=== PATIENT | female | born 1940 | race Caucasian/White ===

== ENCOUNTER 2025-04-24 09:39 | Outpatient (CLI) | payer MEDICARE, OTHER, SELFPAY ==
--- NOTE | 2025-04-24 10:44 | ECG_ITS ---
Test Date: 2025-04-24 11:06:34 Measurements Intervals [place] Rate: 65 P: 46 GA: 168 QRS: 6 QRSD: 89 T: 41 QT: 400 QTc: 417 Interpretive Statements SINUS RHYTHM WARNING: DATA QUALITY MAY AFFECT INTERPRETATION No previous ECG available for comparison Electronically Signed On 04-24-2025 14:38:26 CDT by Tyler Underwood M.D.
--- OUTSIDE RECORDS SUMMARY | 2025-04-24 10:52 | XMS_ITS | Clinical Summary ---
Author Organization [facility] Address [address] [place] [address] Care Team Providers Care Manager Practice Name Role Phone Jahaira Morgan RN Unavailable [phone] Lori Lancaster Primary Care Provider [phone] Source Comments [facility],non-owned Affiliates and Associated Physician Practices is amultiple site organization consisting of ambulatory clinics and hospital sitesin [place], [place], [place] and [place]. This disclosure is being madepursuant to the Care Everywhere program and may not contain all information available regarding this patient. Last updated 18.[facility] Allergies Active Allergy Reactions Criticality Noted Date Comments Codeine Rash Low 11/01/2014 Levofloxacin Rash Low 11/01/2014 Penicillins Rash Low 11/01/2014 Medications * Be aware that medications may not be up to date on this document. Alwaysverify current medications with the patient. amitriptyline (ELAVIL) 50 MG tablet Take 50 mg by mouth at bedtime. Active triamterene-hyd rochlorothiazid e (MAXZIDE) 75-50 MG tablet Take 1 Tab by mouth once daily. Active Potassium 99 MG tablet Take 99 mg by mouth once daily. Active metFORMIN (Glucophage) 500 MG tablet Take 1 (one) tablet by mouth 2 times daily with morning and evening meal Active rosuvastatin (Crestor) 5 MG tablet Take 1 (one) tablet by mouth once daily Active omeprazole (PriLOSEC) 40 MG capsule Take 1 (one) capsule by mouth daily before breakfast Active Probiotic Product (PROBIOTIC DAILY PO) Active levothyroxine (Synthroid) 112 MCG tablet Take 1 (one) tablet by mouth daily before breakfast Active Other 5 mg 2 times daily Biosil Active Multiple Vitamins-Minera ls (PRESERVISION AREDS PO) Active melatonin 10 MG capsule Take 1 (one) capsule by mouth at bedtime Active diphenhydrAMINE HCl (BENADRYL ALLERGY PO) Take 25 mg by mouth takes 2 at night Active Acetaminophen (TYLENOL PO) Take 500 mg by mouth takes 2 at night Active COLLAGEN PO Take by mouth once daily Active oxyBUTYnin CR 24hr (Ditropan-XL) 5 MG tablet Take 1 tablet by mouth once daily 30 tablet 6 3 Active Active Problems Problem Noted Date Diagnosed Date 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7 C (98 F) 11/02/2014 11:46 AM CDT Respiratory Rate 18 11/02/2014 11:46 AM CDT Oxygen Saturation 99% 11/02/2014 11:46 AM CDT Inhaled Oxygen Concentration - - Weight 52.6 kg (116 lb) 06/03/2022 2:18 PM CDT Height 152.4 cm (5') 06/03/2022 2:18 PM CDT Body Mass Index 22.65 06/03/2022 2:18 PM CDT Plan of Treatment Health Maintenance Due Date Last Done Comments BONE DENSITY TESTING 1940 MEDICARE AWV 12 MONTHS 1940 DTAP/TDAP/TD VACCINES (1 - Tdap) 1961 PNEUMOCOCCAL VACCINE 50+ (1 of 1 - PCV) 1992 ZOSTER VACCINE (1 of 2) 1992 Respiratory Syncytial Virus (RSV) Vaccine Pt: or over 60 yrs (1 - 1-dose 75+ series) 2017 DEPRESSION SCREENING 08/03/2024 COVID-19 VACCINE (3 - 2024-2 6 season) 2025 09/24/2020, 08/22/2020 INFLUENZA VACCINE (#1) 2025 04/30/2020 HEPATITIS B VACCINE Aged Out No longe r eligible based on patient's age to complete this topic HIB VACCINE Aged Out No longer eligi ble based on patient's age to complete this topic HPV VACCINE Aged Out No longer eligi ble based on patient's age to complete this topic MENINGOCOCCAL (Group B) VACCINE SHARED DECISION-MAKING Aged Out No longer eligible based on patient's age to complete this topic MENINGOCOCCAL GROUPS A/C/Y/W VACCINE Aged Out No longer eligible b ased on patient's age to complete this topic Medical Devices Implanted Type Area State Assessed Properties Director Device Identifier Shelf Expiration Date Model / Serial / Lot Grft Tiss Rep Xenform 4 X 7cm Implanted:Qty: 1 on 11/01/2014 by Eric Landa MD at [facility] N/A: Bladder Remark Micro[employer] 04/03/2017 [id number] / / [id number] Description:anterior vaginal [place] [address] [facility] [employer] [place] MEDICARE [employer] [place] MEDIC[place] Advance Directives * Full Code (Latest Code Status on File) Date Activated Date Inactivated Comments 11/01/2014 12:59 PM 11/02/2014 8:29 PM * Full Code Date Activated Date Inactivated Comments 11/01/2014 7:01 AM 11/01/2014 12:59 PM Care Teams Manager Practice Relationship Specialty Start Date End Date Lori Lancaster PA [address] [place] [id number] PCP - General 02/19/22 Jahaira Morgan, RN Social Worker School 11/01/14
[2025-04-24 12:39] LABS: Hematocrit 41.2 % (37.0-47.0); Hemoglobin 12.8 g/dL (12.0-15.0); Immature Granulocyte Percent A 0.3 % (0-0.5); Lymphocytes Absolute Auto 1.82 K/mm3 (0.9-3.2); Mean Corpuscular HGB Conc 31.1 g/dl (32-36); Mean Corpuscular Hemoglobin 28.4 pg (26-34); Mean Corpuscular Volume 91.6 fl (80-100); Nucleated Red Blood Cells Absolute Auto 0.000 K/mm3 (0.0-0.012); Nucleated Red Blood Cells Perc 0.0 % (0.0-0.2); Platelet Count Result 298 k/mm3 (150-375); Red Blood Count 4.50 M/mm3 (4.2-5.4); White Blood Count 7.3 K/mm3 (4.5-10.0)
[2025-04-24 12:43] LABS: Add Urine Microscopic? YES; Appearance Urine Clear (Clear); Glucose Urine UA Negative (Negative); Leukocyte Esterase Ur Trace LEU/UL (Negative); Nitrate Urine Negative (Negative); Non Pathogenic Casts 0-2; Specific Grav Ur 1.014 (1.001-1.035)
[2025-04-24 12:55] LABS: Alanine Aminotransferase 17 U/L (6-35); Albumin Level 4.4 g/dL (3.5-5.1); Alkaline Phosphatase 108 U/L (38-126); Anion Gap 9 mmol/L (4-12); Aspartate Amino Transferase 26 U/L (14-36); Bilirubin,Total 0.3 mg/dL (0.2-1.3); Blood Urea Nitrogen 19 mg/dL (7-17); CRP < 0.5 mg/dL (<1.0); Calcium 9.2 mg/dL (8.4-10.2); Carbon Dioxide 31 mmol/L (22-30); Chloride 98 mmol/L (98-107); Estimated Glomerular Filt Rate > 60; Glucose 112 mg/dL (65-110); Hemoglobin A1C 6.4 % (<5.7); Potassium 3.7 mmol/L (3.4-5.0); Sodium 138 mmol/L (137-145); Total Protein 7.7 g/dL (6.3-8.2)
[2025-04-24 12:58] LABS: INR 1.1; Prothrombin Time 14.7 Seconds (11.1-14.7)
[2025-04-24 12:59] LABS: Partial Thromboplastin Time 28.9 Seconds (22.3-36.8)
[2025-04-24 13:51] LABS: MRSA (PCR) NOT DETECTED (NOT DETECTE)
== END 2025-04-24 09:40 | disposition home or self-care (01) ==
LOC: ANHSURGERY 09:50
PROVIDERS: Visit Provider Orthopaedic Surgery
DX: M25.562 Pain in left knee (principal); Z01.818 Encounter for other preprocedural examination
CPT/HCPCS: 80053; 80307; 81001; 83036; 85025; 85610; 85730; 86140; 86850; 86900; 86901; 87641; 93005

== ENCOUNTER 2025-05-05 13:46 | Observation (INO) | payer MEDICARE, OTHER, SELFPAY ==
[2025-04-24 10:16] VITALS: BP 180/66; PULSE 65; RESP 16; TEMP 36.7; O2SAT 100; BMI 23.4
[2025-04-24 10:35] VITALS: BP 160/51
--- NOTE | 2025-04-24 10:36 | PC.NURSE ---
Addendum entered by Roseann Jang RN 04/25/25 09:52: Pt instructed to be here at 1000 on 05/04 for surgery at 1200. Message relayed to patient via Jaciel in Dr. Mesa's office. Original Note: [facility] has started construction of its new state of the art ER which will open Spring 2026. With this, we anticipate parking may be a challenge for some our surgical patients and families. Parking spaces are limited but are available for all Surgical, obstetrics, and ER patients sharing this lot. If you arrive and find you are having a hard time finding a parking space, please note that we understand the challenges, please drive around the hospital and park near Hospital Entrance 1. When you enter this entrance, you can ask a volunteer to direct or take you back to the surgical waiting area to check in. We appreciate everyone?s understanding of these expected challenges while we build for your future. Report to the Outpatient Waiting Room, entrance under the green pavilion located off [address], at time __06:00am on date __05/04/25 . Planned Procedure Time: 07:30am .? Time changes happen often and if your time is changed the preop area will call you the afternoon before. - You and your visitor will be asked to self-screen and do not enter if you have any COVID symptoms. Please call surgeon if you need to reschedule. - A mask is optional within the hospital at this time. Patients may have clear liquids (water, carbonated beverages, clear teas, apple juice) until 3 hours prior to surgery with a maximum of 20 ounces. - No food from midnight until time of surgery and no smoking, or chewing tobacco (or any form of nicotine). No chewing gum, candy or mints. (0430am) Take only the following medications with a SIP of water on the morning of surgery: Levothyroxine DO NOT STOP ANY OF YOUR OTHER PRESCRIPTION MEDICATIONS PRIOR TO SURGERY EXCEPT THE FOLLOWING Hold all vitamins and supplements for 3 days per anesthesiologist.Date of last dose 05/01/25. Medications to discontinue per physician ____Aspirin to be discussed w Dr Mesa tomorrow, usually HOLD one week Prior Date to take last dose__pending Please no make-up, nail irish, hairspray, perfume, deodorant, or body powder the day of surgery.? No jewelry (including any body piercings) or valuables the day of surgery, leave them at home.? Please take a shower or bath the night before, or the morning of, surgery with an antibacterial soap.?Scrub per Surgeon or DIAL SOAP Wear comfortable, loose fitting clothing.?Bring overnight bag, good tennis shoes, robe, walker, cell phone if you wish. - Jewelry must be removed prior to entering the operating room.? Rings and piercings that are not removed may be cut off. - The hospital will not accept responsibility for valuables.? - Please leave all valuables, including medications, at home the day of surgery. If you are going home after surgery, a licensed cab driver must drive you home.? - NO public transportation without another adult if you receive anesthesia. - We recommend that an adult stay with you for 24 hours following discharge. - We also recommend that you do not drive, make important decision, drink alcoholic beverages, or take any drugs that were not prescribed by your health care provider for at least 24 hours after your discharge time. Follow any additional instructions given to you from your surgeon. Telephone instructions given to ___Patient and asked if any additional questions and then verbalized understanding. Patient advised to call surgeon office or pre surgery nurse liaison [phone] if any additional questions.
[2025-05-04] VITALS (11 sets, daily range): BP systolic 136–161; BP diastolic 46–62; PULSE 70–78; RESP 14–20; TEMP 36.1–36.7; O2SAT 94–100
--- OUTSIDE RECORDS SUMMARY | 2025-05-04 00:40 | XMS_ITS | Encounter Summary ---
Author Organization [facility] Address [address] [place] [address] Care Team Providers Care Jig Grinder Name Role Phone Lori Lancaster Primary Care Provider [phone] Encounter Details Date Type Department Care Team (Late st Contact Info) Description 01/11/2025 [employer] Message [address] [id number] [employer], [facility] Provider Referral Social History Tobacco Use Types Packs/Day Years Used Date Smoking Tobacco: Former Cigarettes Passive Smoke Exposure: Past Smokeless Tobacco: Never Alcohol Use Standard Drinks/Week Comments No 0 (1 standard drink = 0.6 oz pur e alcohol) [facility] Utilities Answer Date Recorded In the past 12 months has [facility] [employer], gas, oil, or water [employer] threatened to shut off services in your home? No 11/07/2023 Humiliation, Afraid, Rape, and Kick questionnair e Answer Date Recorded Within the last year, have y ou been afraid of your partner or ex-partner? No 11/07/2023 Within the last year, have y ou been humiliated or emotionally abused in other ways by your partner or ex-partner? No Within the last year, have y ou been kicked, hit, slapped, or otherwise physically hurt by your partner or ex-partner? No 11/07/2023 Within the last year, have y ou been raped or forced to have any kind of sexual activity by your partner or ex-partner? No 11/07/2023 Social Connection and Isolat ion Panel [NHANES] Answer Date Recorded In a typical week, how many times do you talk on the phone with family, friends, or neighbors? More than three times a week 09/11/2020 Frequency of Social Gatherin gs with Friends and Family Not on file 09/11/2020 Attends Jehovah'S Witness Services Not on file 09/11 Active Member of Clubs or Organizations Not on f ile 09/11/2020 Attends Club or Organization Meetings Not on leyla e 09/11/2020 Marital Status Not on file 09/11/2020 AUDIT-C Answer Date Recorded Frequency of Alcohol Consumption Never 12/06/2018 Average Number of Drinks Not on file 019 Frequency of Binge Drinking Not on file 01/2019 Overall Financial Resource Strain (CARDIA) Answe r Date Recorded How hard is it for you to pa y for the very basics like food, housing, medical care, and heating? Not hard at all 11/07/2023 PHQ-2 Answer Date Recorded Patient Health Questionnaire-2 Score 0 10/20/2024 [facility] - Occupational Stress Questionnaire Answer Date Recorded Do you feel stress - tense, restless, nervous, or anxious, or unable to sleep at night because your mind is troubled all the time - these days? Not at all 09/11/2020 Exercise Vital Sign Answer Date Recorde d On average, how many days pe r week do you engage in moderate to strenuous exercise (like a brisk walk)? 3 days 09/11/2020 On average, how many minutes do you engage in exercise at this level? 30 min 09/11/2020 Hunger Vital Sign Answer Date Recorded Within the past 12 months, y ou worried that your food would run out before you got the money to buy more. Never true 11/07/19 24 Within the past 12 months, t he food you bought just didn't last and you didn't have money to get more. Never true 11/07/2023 PRAPARE - Transportation Answer Date Re corded In the past 12 months, has l ack of transportation kept you from medical appointments or from getting medications? No 01/2024 In the past 12 months, has l ack of transportation kept you from meetings, work, or from getting things needed for daily living? No 11/07/2023 Housing Stability Vital Sign Answer Jordan e Recorded In the last 12 months, was t here a time when you were not able to pay the mortgage or rent on time? No 11/07/2023 In the last 12 months, how many places have you lived? 1 11/07/2023 In the last 12 months, was t here a time when you did not have a steady place to sleep or slept in a assisted (including now)? No 11/07/2023 Housing Stability Vital Sign Answer Jordan e Recorded In the last 12 months, was t here a time when you were not able to pay the mortgage or rent on time? No 11/08/2023 In the past 12 months, how m any times have you moved where you were living? 1 11/08/2023 At any time in the past 12 m [facility], were you homeless or living in a assisted (including now)? No 11/08/2023 Comments No Sex and Gender Information Value Date Recorded Sex Assigned at Not on file Legal Sex Female 7:05 PM CDT Gender Identity Not on file Sexual Orientation Not on file documented as of this encounter Functional Status * Are you deaf or do you have serious difficulty hearing Answer Date of Assessment Author Status No 11/07/2023 11:27 AM JUANT Yamini Ken RN Active * Are you blind or do you have serious difficulty seeing, even when wearing glasses? Answer Date of Assessment Author Status No 11/07/2023 11:27 AM JUANT Yamini Ken RN Active * Do you have serious difficulty walking or climbing stairs? Answer Date of Assessment Author Status No 11/07/2023 11:27 AM JUANT Yamini Ken RN Active * Do you have difficulty dressing or bathing? Answer Date of Assessment Author Status No 11/07/2023 11:27 AM Yamini Roman RN Active * Because of a physical, mental, or emotional condition, do you have difficulty doing errands alone such as visiting a doctor's office or shopping? Answer Date of Assessment Author Status No 11/07/2023 11:27 AM Yamini Roman RN Active documented as of this encounter Mental Status * Because of a physical, mental, or emotional condition, do you have serious difficulty concentrating, remembering, or making decisions? Answer Entry Date Author Status No 11/07/2023 11:27 AM CDT Yamini Ken RN Active documented in this encounter Plan of Treatment Upcoming Encounters Date Type Department Care Team (Late st Contact Info) Description 01/10/2026 10:30 AM CDT Appointment [facility] [address] [place], [place] [id number] [facility] [address] [place] [address] documented as of this encounter Visit Diagnoses Not on filedocumented in this encounter Additional Health Concerns Assessment Noted Time PHQ-9 Depression Total Score: 0 02/19/20 21 10:26 AM CDT documented as of this encounter Care Teams Jig Grinder Relationship Specialty Start Date End Date Lori Lancaster PA [address] [facility] [place] [address] PCP - General PHYSICIAN SOLAR THERMAL TECHNICIAN 06/23/18 documented as of this encounter
--- OUTSIDE RECORDS SUMMARY | 2025-05-04 00:40 | XMS_ITS | Encounter Summary ---
Author Organization [facility] Address [facility] [place] [address] Care Team Providers Care Groutman Name Role Phone Lori Lancaster Primary Care Provider [phone] Encounter Details Date Type Department Care Team (Late st Contact Info) Description 06/28/2004 Abstract [facility] Conversion Md, Generic Conversion, Social History Tobacco Use Types Packs/Day Years Used Date Smoking Tobacco: Never Assessed Comments Unknown Sex and Gender Information Value Date Recorded Sex Assigned at Not on file Legal Sex Female 7:05 PM CDT Gender Identity Not on file Sexual Orientation Not on file documented as of this encounter Plan of Treatment Upcoming Encounters Date Type Department Care Team (Late st Contact Info) Description 01/10/2026 10:30 AM CDT Appointment [facility] [address] [place] [address] Omid Terry MD [place]. [address] [address] documented as of this encounter Visit Diagnoses Not on filedocumented in this encounter Additional Health Concerns Infection Onset Date Last Indicated Resolved Time COVID-19 Rule Out 09/08/2020 09/08/2020 09/09/2020 4:26 PM UTILITY LINEMAN COVID-19 Rule Out 07/09/2023 07/09/2023 07/09/2023 1:31 PM UTILITY LINEMAN documented as of this encounter Care Teams Groutman Relationship Specialty Start Date End Date Lori Lancaster PA [address] [place] [address] PCP - General PHYSICIAN IT COMPLIANCE MANAGER 06/23/18 documented as of this encounter
--- OUTSIDE RECORDS SUMMARY | 2025-05-04 00:40 | XMS_ITS | Encounter Summary ---
Author Organization [facility] Address [facility] [place] [address] Care Team Providers Care Apparel Designer Name Role Phone Lori Lancaster Primary Care Provider [phone] Encounter Details Date Type Department Care Team (Late st Contact Info) Description 02/23/2018 Abstract [facility] Conversion Lori Lancaster PA [address] [place] [address] Social History Tobacco Use Types Packs/Day Years Used Date Smoking Tobacco: Never Assessed Comments Unknown Sex and Gender Information Value Date Recorded Sex Assigned at Not on file Legal Sex Female 7:05 PM CDT Gender Identity Not on file Sexual Orientation Not on file documented as of this encounter Miscellaneous Notes * Letter - RICKI Moody - 02/23/2018 12:00 AM CDT 02-23-2018 Emma Jacky Corey [address] [place] [address] : 1940 Lab Order: TSH with Reflex T4 E03.9: Hypothyroidism, unspecified Fasting [] Non-Fasting [x] Normal [x] Stat [] C LIBRARIAN documented in this encounter Plan of Treatment Upcoming Encounters Date Type Department Care Team (Late st Contact Info) Description 01/10/2026 10:30 AM CDT Appointment [facility] [address] [place] [address] Omid Terry MD Three [facility]. [facility] [address] [place] [address] documented as of this encounter Visit Diagnoses Not on filedocumented in this encounter Additional Health Concerns Infection Onset Date Last Indicated Resolved Time COVID-19 Rule Out 09/08/2020 09/08/2020 09/09/2020 4:26 PM MUSIC LIBRARIAN COVID-19 Rule Out 07/09/2023 07/09/2023 07/09/2023 1:31 PM MUSIC LIBRARIAN documented as of this encounter Care Teams Apparel Designer Relationship Specialty Start Date End Date Lori Lancaster PA [address] [place] [address] PCP - General PHYSICIAN INSPECTOR HEATING AND REFRIGERATION 06/23/18 documented as of this encounter
--- OUTSIDE RECORDS SUMMARY | 2025-05-04 00:40 | XMS_ITS | Clinical Summary ---
Author Organization [facility] Address [address] [place] [address] Care Team Providers Care Waste Hand Name Role Phone Lori Lancaster Primary Care Provider [phone] Allergies Active Allergy Reactions Criticality Noted Date Comments Codeine Rash Low 11/01/2014 Hydrocodone Unknown 01/17/2019 Pt fell with hydrocodone Levofloxacin Rash Low 11/01/2014 Penicillins Hives,Rash Low 12/19/2003 Turmeric Itching 11/30/2023 Medications Potassium 99 MG tablet Take 1 tablet by mouth daily. Active Melatonin 10 MG Cap Take 10 mg by mouth nightly at bedtime. Active XIIDRA 5 % ophthalmic solution Place 1 drop into both eyes 2 (two) times daily. 5 Active famotidine (PEPCID) 20 MG tablet TAKE 1 TABLET BY MOUTH ONCE DAILY NEEDED AT BEDTIME; Duration: 30 days Active triamterene-hydroCH LOROthiazide (MAXZIDE) 75-50 MG tabletIndications:E ssential (primary) hypertension Take 0.5 tablets by mouth daily. 45 tablet 3 5 Active levothyroxine (SYNTHROID) 100 MCG tabletIndications:P rimary hypothyroidism Take 1 tablet (100 mcg total) by mouth every morning. FOR 14 DAYS 90 tablet 3 5 Active losartan (COZAAR) 25 MG tabletIndications:E ssential (primary) hypertension Take 1 tablet (25 mg total) by mouth daily. 90 tablet 3 5 Active omeprazole (PRILOSEC) 40 MG capsuleIndications: Gastroesophageal reflux disease without esophagitis Take 1 capsule (40 mg total) by mouth daily. 90 capsule 3 5 Active atorvastatin (LIPITOR) 40 MG tabletIndications:T ype 2 diabetes mellitus with hyperglycemia, without long-term current use of insulin ([facility] HHS/HCC),History of TIA (transient ischemic attack) Take 1 tablet (40 mg total) by mouth nightly at bedtime. 90 tablet 3 5 Active amitriptyline (ELAVIL) 50 MG tabletIndications:I rritable bowel syndrome, unspecified type Take 0.5 tablets (25 mg total) by mouth nightly at bedtime. 45 tablet 3 5 Active metFORMIN ER (GLUCOPHAGE-XR) 500 MG 24 hr tabletIndications:T ype 2 diabetes mellitus with hyperglycemia, without long-term current use of insulin ([facility]) Take 1 tablet (500 mg total) by mouth daily with breakfast. 90 tablet 3 5 Active Active Problems Problem Noted Date Diagnosed Date Visual disturbance 02/01/2025 Chronic constipation 01/29/2024 History of colon polyps 01/29/2024 Esophageal dysphagia 01/29/2024 Bilateral knee pain 01/21/2024 TIA (transient ischemic attack) 11/07/2023 Hiatal hernia 11/28/2020 Status post dilatation of esophageal stricture 0 10/04/2020 Dysphagia, unspecified type 09/06/2020 Acute renal insufficiency 01/13/2019 Age-related osteoporosis wit hout current pathological fracture 12/08/2018 Cystocele, midline 07/10/2015 Overview (06/23/2018): uses kun caputo hysterctomy Gross hematuria 07/10/2015 GERD (gastroesophageal reflux disease) 5 Overview (06/23/2018): needs repeat EGD in 04/2016 Hereditary and idiopathic neuropathy 07/12/2012 Primary hypothyroidism 07/12/2012 Encounters Date Type Department Care Team Description 04/20/[address] [facility] [address] [place] [address] Lori Lancaster PA Forms 03/30/[address] [facility] [address] [place] [address] Lori Lancaster PA Referral 03/15/2025 11:00 AM CDT Office Visit [facility] [address] [place] [address], [place] [address] Lori Lancaster PA Diabetes; Surgical Clearance (Lt knee, Dr [place], not scheduled yet) 03/15/2025 Travel 03/08/2025 11:20 AM CDT Office Visit [facility] - [address], [address] [place] [phone] Guillermina Beltrán MD New Patient (PCP sent here to just have everything checked out she stated ) 03/08/2025 Travel 02/15/2025 Scan [facility] SRVCS Scanned, [facility] 02/01/2025 11:15 AM CDT Office Visit [facility] [address] [place] [phone] Omid Terry MD Follow Up 02/01/2025 Orders Only [facility], [address] [place] [address] Omid Terry MD from Last 3 Months Immunizations Immunization Administration Dates Next Due Abrysvo Respiratory Syncytia l Virus (RSV) 0.5 mL, PF 06/30/2023 Fluzone High Dose (IIV, trivalent, 0.5mL) 2023 Fluzone High Dose - >Age 65 (Prefilled Syringe) 04/22/2023,05/28/2022,04/30/2020 Hepatitis A/Hepatitis B(Twinrix) 02/10/2023,04 Influenza Adult (Generic) 04/22/2023,05/28/2022, 04/30/2020 MODERNA COVID-19 (12+) MRNA, LNP-S, PF, 100 MCG/ 0.5 ML DOSE 09/24/2020,08/22/2020 MODERNA COVID-19 (12+), MRNA , LNP-S, PF, 50 MCG/0.5 ML (SPIKEVAX) 05/06/2023 MODERNA COVID-19 (FINANCIAL DEVELOPER ZHOU SCOTT), MRNA, LNP-S, PF, 50 MCG/ 0.25 ML DOSE 07/01/2021 Pneumococcal (Pneumovax 23) 02/13/2022 Pneumococcal (Prevnar 13) 04/30/2020,12/23/2019 Pneumococcal (Prevnar 20) 06/10/2023 Shingrix 06/27/2024,03/25/2024 Tdap (Generic) 11/10/2022,12/01/2007 Typhoid (Typhim ) 11/12/2022 Family History Medical History Relation Comments Cancer Daughter thyroid Cancer Father oral (under tong ue) Relation Status Comments Daughter Father Social History Tobacco Use Types Packs/Day Years Used Date Smoking Tobacco: Former Cigarettes Q uit: 09/03/2008 Passive Smoke Exposure: Past Smokeless Tobacco: Never Tobacco Cessation:Counseling Given: No Alcohol Use Standard Drinks/Week Comments Not Currently 0 (1 standard drink = 0.6 oz pur e alcohol) [facility] Utilities Answer Date Recorded In the past 12 months has e [employer], gas, oil, or water [employer] threatened to shut off services in your [...] and Family Not on file 09/11/2020 Attends [employer] Not on file 09/11 Active Member [...] Recorded Patient Health Questionnaire-2 Score 0 10/20/2024 [facility]ational Stress Questionnaire Answer Date Recorded [...] place to sleep or slept in a care home (including now)? No 11/07/2023 Housing Stability Vital Sign Answer Jordan e Recorded In the last 12 months, was t here a time when you were not able to pay the mortgage or rent on time? No 11/08/2023 In the past 12 months, how m any times have you moved where you were living? 1 11/08/2023 At any time in the past 12 m [facility], were you homeless or living in a care home (including now)? No 11/08/2023 Comments No Sex and Gender Information Value Date Recorded Sex Assigned at Not on file Legal Sex Female 7:05 PM CDT Gender Identity Not on file Sexual Orientation Not on file Last Filed Vital Signs Vital Sign Reading Time Taken Comments Blood Pressure 153/73 03/15/2025 11:00 AM CDT Pulse 80 03/15/2025 11:00 AM CDT Temperature 36.9 C (98.5 F) 03/15/2025 11:00 AM CDT Respiratory Rate 18 03/15/2025 11:0 0 AM CDT Oxygen Saturation 98% 03/15/2025 11: 00 AM CDT Inhaled Oxygen Concentration - - Weight 54.3 kg (119 lb 12.8 oz) 025 11:00 AM CDT Height 152.4 cm (5') 03/15/2025 11:00 AM CDT Body Mass Index 23.4 03/15/2025 11:00 AM CDT Plan of Treatment Upcoming Encounters Date Type Department Care Team (Late st Contact Info) Description 01/10/2026 10:30 AM CDT Appointment [facility] [address] [place] [address] Omid Terry MD [facility] [address] [place] [address] Health Maintenance Due Date Last Done Comments Diabetes: Retinopathy Eye Exam 1960 Annual Medicare Wellness Visit 2007 COVID-19 Vaccine ( season) 2025 05/06/2023, 07/01/2021, 09/24/2020, Additional history exists Influenza Adult (#1) 2025 06/27/2024, 04/22/2023, 04/22/2023, Additional history exists Hemoglobin A1C 07/05/2025 01/03/2025, 11/03, 03/21/2024, Additional history exists Lipid Panel 11/30/2025 11/30/2024, 05/0 04/2024, 11/08/2023, Additional history exists Kidney Health Evaluation 12/01/2025 12/01/2024 DTaP, Tdap and Td Vaccines (3 - Td or Tdap) 11/10/2032 11/10/2022, 12/01/2007 Pneumococcal Vaccine: 50+ Years Completed 06/10/2023, 02/13/2022, 04/30/2020, Additional history exists RSV Immunization or 60+ Years Completed 06/30/2023 Dexa Scan (General) Completed 10/13/2023 Zoster Vaccines Completed 06/27/2024, 03/25/2024 PHQ-2 (Physician Kenaitze) Completed 10/20/2024 Meningococcal B Vaccine Aged Out No l onger eligible based on patient's age to complete this topic Meningococcal Vaccine Aged Out No jennifer ana eligible based on patient's age to complete this topic RSV Immunizations Under 20 Months Aged Out No longer eligible based on patient's age to complete this topic Medical Devices Implanted Type Area Monorail Helper Device Identifier Shelf Expiration Date Model / Serial / Lot Tecnis Iol Implanted:Qty: 1 on 12/07/2023 by Gianna Clay MD at [facility] Left: Eye [employer] [id number] 11/10/2025 / [id number] / N/A Occular Lens Implanted:Qty: 1 on 02/01/2024 by Gianna Clay MD at [facility] Right: Eye [employer] [id number] 08/31/2025 [id number] / [id number] / Procedures Procedure Name Priority Date/Time Associated Diagnosis Comments HEMOGLOBIN, GLYCOSYLATED Routine 01/03/2025 10:53 AM CDT Type 2 diabetes mellitus with hyperglycemia, without long-term current use of insulin ([facility]) LIPID PANEL Routine 11/30/2024 1:56 PM CDT Type 2 diabetes mellitus with hyperglycemia, without long-term current use of insulin ([facility]) Essential (primary) hypertension BONE DENSITY/DEXA Routine 10/13/2023 1:5 0 PM CDT Menopause from Last 3 Months or Most Recently Relevant to Health Maintenance Results * (ABNORMAL) HEMOGLOBIN, GLYCOSYLATED (01/03/2025 10:53 AM CDT) HGB A1C 6.6(H) <5.7 % 01/03/2025 8:05 PM CDT [facility] Comment: ADA GUIDELINES 2010 5.7 TO 6.4% INCREASED RISK OF DIABETES > OR = 6.5% CONSISTENT WITH DIABETES ESTIMATED AVG GLUCOSE 143 mg/dL 01/03/2025 8:05 PM CDT [facility] 01/03/2025 10:5 3 AM CDT [facility] Final Result [facility] [address] [place] [address], [place] [phone] * (ABNORMAL) LIPID PANEL (11/30/2024 1:56 PM CDT) CHOLESTEROL 145 <200 MG/DL 11/30/2024 2:48 PM CDT [facility] TRIGLYCERIDES 188(H) <150 MG/DL 11/30/2024 2:48 PM CDT [facility] HDL 60 >40.0 MG/DL 11/30/2024 2:48 PM CDT [facility] LDL (CALCULATED) 47 <100 MG/DL 11/30/2024 2:48 PM CDT [facility] NON HDL CHOLESTEROL 85 <130 MG/DL 11/30/2024 2:48 PM CDT [facility] Comment: NOTE: WHEN THE TRIGLYCERIDES ARE >200 mg/dL, NON HDL C IS A SECONDARY TARGET OF THERAPY, WITH A GOAL 30 mg/dL HIGHER THAN THE IDENTIFIED LDL C GOAL. CHOL/HDL RATIO 2.4 0.0 - 4.5 11/30/2024 2:48 PM CDT [facility] VLDL CALCULATION 38 5 - 55 MG/DL 11/30/2024 2:48 PM CDT [facility] LIPID INTERPRETATION 11/30/2024 2:48 PM CDT [facility] Comment: NIH CONCENSUS REPORT RECOMMENDATIONS: ADULT CHILD LOW RISK: CHOLESTEROL <200 <170 TRIGLYCERIDE <150 --- HDL >=60 --- LDL <100 <110 BORDERLINE: CHOLESTEROL 200-239 170-199 TRIGLYCERIDE 150-199 --- HDL 40-59 --- LDL 100-159 110-129 HIGH RISK: CHOLESTEROL >=240 >=200 TRIGLYCERIDE >=200 --- HDL <40 --- LDL >=160 >=130 11/30/2024 1:56 PM CDT [facility] Final Result [facility] [address] [place] [address], [place] [phone] * BONE DENSITY/DEXA (10/13/2023 1:50 PM CDT) Anatomical Region Laterality Modality Bone Bone Density 10/13/2023 4:14 PM CDT Impressions 10/13/2023 4:16 PM CDT IMPRESSION: WHO Classification: Osteoporosis. RECOMMENDATIONS: All patients should ensure an adequate intake of dietary calcium and vitamin D. The NOF recommend adults under the age of 50 need 1000 mg of calcium and 400-800 IU of vitamin D daily. Effective therapy for the prevention and treatment of osteoporosis include bisphosphonates. FOLLOW-UP: People with diagnosed cases of osteoporosis or at high risk for fracture should have regular bone mineral density test. For patients eligible for Medicare, routine testing is allowed once every 2 years. Testing frequency can be increased to one year for patients who have rapidly progressing disease, those who are receiving or discontinuing medical therapy to restore bone mass, or have additional risk factors. Ordered By: LORI LANCASTER Interpreted By: Stanton Coy, 10/13/2023 4:14 PM Narrative 10/13/2023 4:16 PM CDT EXAMINATION: BONE DENSITY/DEXA INDICATIONS: Asymptomatic menopausal state COMPARISON: 09/18/2015 TECHNIQUE: DEXA bone mineral density evaluation was performed in the AP projection over the lumbar spine and both hips utilizing standard imaging techniques. FINDINGS: The BMD measured at the AP spine L1-L4 is 1.107 g/cm? with a T-score of 0.5 (previously 0.943 g/cm?) with a T-score of -0.9). The BMD measured at the left femoral neck is 0.508 g/cm? with a T-score of -3.1 (previously 0.518 g/cm?) with a T-score of -3.0). The BMD measured at the left hip is 0.592 g/cm? with a T-score of -2.9 (previously 0.592 g/cm?) with a T-score of -2.9). The BMD measured at the right femoral neck is 0.511 g/cm? with a T-score of - 3.0. The BMD measured at the right hip is 0.615 g/cm? with a T-score of -2.7. FRAX 10-year fracture risk: N/A: Multiple T scores are below -2.5 Procedure Note Stanton Coy MD - 10/13/2023 EXAMINATION: BONE DENSITY/DEXA INDICATIONS: Asymptomatic menopausal state COMPARISON: 09/18/2015 TECHNIQUE: DEXA bone mineral density evaluation was performed in the APprojection over the lumbar spine and both hips utilizing standard imagingtechniques. FINDINGS: The BMD measured at the AP spine L1-L4 is 1.107 g/cm? with a T-score of0.5 (previously 0.943 g/cm?) with a T-score of -0.9). The BMD measured at the left femoral neck is 0.508 g/cm? with a T-score of-3.1 (previously 0.518 g/cm?) with a T-score of -3.0). The BMD measured at the left hip is 0.592 g/cm? with a T-score of - 2.9(previously 0.592 g/cm?) with a T-score of -2.9). The BMD measured at the right femoral neck is 0.511 g/cm? with a T-scoreof -3.0. The BMD measured at the right hip is 0.615 g/cm? with a T-score of -2.7. FRAX 10-year fracture risk: N/A: Multiple T scores are below -2.5 IMPRESSION: WHO Classification: Osteoporosis. RECOMMENDATIONS: All patients should ensure an adequate intake of dietary calcium andvitamin D. The NOF recommend adults under the age of 50 need 1000 mg ofcalcium and 400-800 IU of vitamin D daily. Effective therapy for theprevention and treatment of osteoporosis include bisphosphonates. FOLLOW-UP: People with diagnosed cases of osteoporosis or at high risk for fractureshould have regular bone mineral density test. For patients eligible forMedicare, routine testing is allowed once every 2 years. Testing frequencycan be increased to one year for patients who have rapidly progressingdisease, those who are receiving or discontinuing medical therapy torestore bone mass, or have additional risk factors. Ordered By: LORI LANCASTER Interpreted By: Stanton Coy, 10/13/2023 4:14 PM [facility] Final Result from Last 3 Months or Most Recently Relevant to Health Maintenance Insurance MEDICARE [facility] Advance Directives * Full Code (Latest Code Status on File) Date Activated Date Inactivated Comments 11/07/2023 1:03 PM 11/09/2023 2:29 PM * Full Code Date Activated Date Inactivated Comments 01/13/2019 11:52 AM 01/15/2019 2:09 PM * Full Code Date Activated Date Inactivated Comments 01/13/2019 11:39 AM 01/13/2019 11:52 AM Care Teams Waste Hand Relationship Specialty Start Date End Date Lori Lancaster PA [address] [place] [address] PCP - General PHYSICIAN CHIP APPLYING MACHINE TENDER 06/23/18
--- OUTSIDE RECORDS SUMMARY | 2025-05-04 00:40 | XMS_ITS | Patient Health Record ---
Author Organization [facility] Address [address] [facility] [address] [place] [address] Care Team Providers Care Tire Beader Maker Name Role Phone Lori Cuevas Primary Care Provider Francine WHITING NP, LUISA Unavailable Reason For Referral No Information Medications Medication SIG (Take, Route, Frequency, Duration) Notes Start Date End Date Status Ranitidine HCl 300 MG as directed Orally Twice a day; Duration: 30 day(s) 01/25/2018 Active Famotidine 20 MG TAKE 1 TABLET BY MOUTH ONCE DAILY NEEDED AT BEDTIME; Duration: 30 days Need office visit for future refills Active Omeprazole 40 MG TAKE 1 CAPSULE BY MOUTH ONCE DAILY Active Plan Of Treatment No Information Insurance Providers Payer Name Payer Address Payer Phone Subscriber Number Group Number Insured Name Patient Relationship to Insured Coverage Start Date Coverage End Date Medicare-I L Medicare [address] [place], [place] [id number] Emma Corey Self - patient is the insured [facility] [address] [place] [id number] [phone] [id number] Emma Corey Self - patient is the insured Medicare-M O Medicare [address] [address] [place], [place] [id number] Emma Corey Self - patient is the insured
--- OUTSIDE RECORDS SUMMARY | 2025-05-04 00:40 | XMS_ITS | Clinical Summary ---
Author Organization [facility] Address [address] [place] [address] Care Team Providers Care Processing Technician Name Role Phone Jahaira Morgan RN Unavailable [phone] Lori Lancaster Primary Care Provider [phone] Source Comments [facility],non-owned Affiliates and Associated Physician Practices is amultiple site organization consisting of ambulatory clinics and hospital sitesin [place], [place], [place] and [place]. This disclosure is being madepursuant to the [...] this topic Medical Devices Implanted Type Area Manufacturing Supervisor 2Nd Shift Device Identifier Shelf Expiration Date Model / Serial / Lot Grft Tiss Rep Xenform 4 X 7cm Implanted:Qty: 1 on 11/01/2014 by Eric Landa MD [facility] N/A: Bladder [employer] 04/03/2017 [id number] / / [id number] Description:anterior vaginal [place] [address] MEDICARE [facility] [place] MED[place] Advance Directives * Full Code (Latest Code Status on File) Date Activated Date Inactivated Comments 11/01/2014 12:59 PM 11/02/2014 8:29 PM * Full Code Date Activated Date Inactivated Comments 11/01/2014 7:01 AM 11/01/2014 12:59 PM Care Teams Processing Technician Relationship Specialty Start Date End Date Lori Lancaster PA [address] [place] [id number] PCP - General 02/19/22 Jahaira Morgan, RN Full Stack Net Developer 11/01/14
--- OUTSIDE RECORDS SUMMARY | 2025-05-04 00:40 | XMS_ITS | Encounter Summary ---
Author Organization [facility] Address [facility] [place] [address] Care Team Providers Care Core Analyst Name Role Phone Lori Lancaster Primary Care Provider [phone] Encounter Details Date Type Department Care Team (Late st Contact Info) Description 09/05/2020 Prep for Procedure [facility] [address] [place] [address] Marilyn Boston MD [address] [place] [address] [address] Social History Tobacco Use Types Packs/Day Years Used Date Smoking Tobacco: Former Smokeless Tobacco: Never Alcohol Use Standard Drinks/Week Comments No 0 (1 standard drink = 0.6 oz pur e alcohol) AUDIT-C Answer Date Recorded Frequency of Alcohol Consumption Never 12/06/2018 Average Number of Drinks Not on file 019 Frequency of Binge Drinking Not on file 0501/2019 PHQ-2 Answer Date Recorded PHQ-2 Score 0 08/27/2020 Comments No Sex and Gender Information Value Date Recorded Sex Assigned at Not on file Legal Sex Female 7:05 PM CDT Gender Identity Not on file Sexual Orientation Not on file COVID-19 Exposure Response Date Recorded In the last month, have you been in contact with someone who was confirmed or suspected to have Coronavirus / COVID-19? No / Unsure 09/08/2020 6:44 AM CONSTRUCTION ANALYST documented as of this encounter Functional Status * RETIRED Are you deaf or do you have serious difficulty hearing Answer Date of Assessment Author Status No 01/13/2019 12:17 PM CDT Acti ve * RETIRED Are you blind or do you have serious difficulty seeing, even when wearing glasses? Answer Date of Assessment Author Status No 01/13/2019 12:17 PM CDT Acti ve * Do you have serious difficulty walking or climbing stairs? Answer Date of Assessment Author Status No 01/13/2019 12:17 PM CDT Blanca Grant R N Active * Do you have difficulty dressing or bathing? Answer Date of Assessment Author Status No 01/13/2019 12:17 PM CDT Blanca Grant R N Active * Because of a physical, mental, or emotional condition, do you have difficulty doing errands alone such as visiting a doctor's office or shopping? Answer Date of Assessment Author Status No 01/13/2019 12:17 PM CDT Blanca Grant R N Active documented as of this encounter Mental Status * Because of a physical, mental, or emotional condition, do you have serious difficulty concentrating, remembering, or making decisions? Answer Entry Date Author Status No 01/13/2019 12:17 PM CDT Blanca Grant R N Active documented in this encounter Plan of Treatment Upcoming Encounters Date Type Department Care Team (Late st Contact Info) Description 01/10/2026 10:30 AM CDT Appointment [facility] [address] [place] [address] Omid Terry MD [facility]. [id number] [place] [address] documented as of this encounter Results * PRE-SURGICAL/PRE-PROCEDURE CORONAVIRUS (COVID 19) (09/08/2020 6:45 AM CONSTRUCTION ANALYST) CORONAVIRUS SARS COV 2 PCR (RESP) NOT DETECTED NOT DETECTED 09/09/2020 4:26 PM CONSTRUCTION ANALYST [facility] Comment: A Not Detected (negative) test result for this test means that SARS- CoV-2 RNA was not present in the specimen above the limit of detection. A negative result does not rule out the possibility of COVID-19 and should not be used as the sole basis for treatment or patient management decisions. If COVID-19 is still suspected, based on exposure history together with other clinical findings, re-testing should be considered in consultation with public health authorities. Laboratory test results should always be considered in the context of clinical observations and epidemiological data in making a final diagnosis and patient management decisions. Please review the Fact Sheets and FDA authorized labeling available for health care providers and patients using the following websites: https://[email or web address].Allostatix/home/Covid-19/HCP/QuestIVD/fact- sheet.html https://www.Odeo.Allostatix/home/Covid-19/Patients/ QuestIVD/fact-sheet.html This test has been authorized by the FDA under an Emergency Use Authorization (EUA) for use by authorized laboratories. Due to the current public health emergency, [facility] is receiving a high volume of samples from a wide variety of swabs and media for COVID-19 testing. In order to serve patients during this public health crisis, samples from appropriate clinical sources are being tested. Negative test results derived from specimens received in non-commercially manufactured viral collection and transport media, or in media and sample collection kits not yet authorized by FDA for COVID-19 testing should be cautiously evaluated and the patient potentially subjected to extra precautions such as additional clinical monitoring, including collection of an additional specimen. Methodology: Nucleic Acid Amplification Test (NAAT) includes RT-PCR or TMA Additional information about COVID-19 can be found at the [facility] website: www.iAmplify.Allostatix/Covid19. Test performed at [facility] [address] [id number] Director: CARL SYLVESTER DO,MPH FIRST TEST NO 09/08/2020 6:45 AM [facility] EMPLOYED IN HEALTHCARE NO 09/08/2020 6:45 AM [facility] SYMPTOMATIC DEFINED BY CDC NO 09/08/2020 6:45 AM [facility] DATE OF SYMPTOM ONSET UNKNOWN 09/08/2020 11:02 AM CONSTRUCTION ANALYST [facility] HOSPITALIZATION STATUS NO 09/08/2020 6:45 AM CONSTRUCTION ANALYST [facility] PATIENT IN ICU NO 09/08/2020 6:45 AM CONSTRUCTION ANALYST [facility] RESIDENT OF [facility] NO 09/08/2020 6:45 AM CONSTRUCTION ANALYST [facility] NOT 09/08/2020 11:02 AM CONSTRUCTION ANALYST [facility] PATIENT'S RACE WHITE OR 09/08/2020 6:45 AM CONSTRUCTION ANALYST [facility] ETHNICITY NONHISPANIC 09/08/2020 6:45 AM CONSTRUCTION ANALYST [facility] SOURCE ([facility]) NASOPHARYNGEAL SWAB 09/08/2020 6:45 AM CONSTRUCTION ANALYST [facility] NASOPHARYNGEAL SWAB / Unknown 09/08/2020 6:45 AM CONSTRUCTION ANALYST us Marilyn Boston MD MICROBIOLOGY - GENERAL ORDER VINEET Final Result [facility] [address] [place] [address], [facility] [id number] [place] [id number], documented in this encounter Visit Diagnoses Diagnosis Pre-op testing- Primary Preoperative examination, unspecified documented in this encounter Additional Health Concerns Infection Onset Date Last Indicated Resolved Time COVID-19 Rule Out 09/08/2020 09/08/2020 09/09/2020 4:26 PM CONSTRUCTION ANALYST COVID-19 Rule Out 07/09/2023 07/09/2023 07/09/2023 1:31 PM CONSTRUCTION ANALYST documented as of this encounter Care Teams Core Analyst Relationship Specialty Start Date End Date Lori Lancaster PA [address] [place] [address] PCP - General PHYSICIAN BUSINESS ARCHITECT 06/23/18 documented as of this encounter
[2025-05-04] MEDS: LACTATED RINGERS 1,000 ML 30 ML IV CONT ×2 (11:15→15:40)
[2025-05-04] MEDS: ACETAMINOPHEN 500 MG TABLET 1000 MG PO (11:15)
[2025-05-04] MEDS: TRANEXAMIC ACID 1,000MG/ISO100 1,000 MG/100 ML BAG 200 MG IVPB (11:15)
[2025-05-04] MEDS: VANCOMYCIN 750 MG/NS 250 ML 750 MG/250 ML BAG 250 MG IVPB (11:15)
--- NOTE | 2025-05-04 11:55 | WPDHPUPDATE1 ---
History and Physical Update Update Date/Time: 05/04/25 11:55 History and Physical has been reviewed, including an updated exam of the patient. There are NO changes in the patient's condition. Risks, benefits, and alternatives have been discussed and questions answered. Patient agrees to proceed with procedure. Left Total Knee Replacement Risks include but are not limited to infection, nerve injury, blood vessel injury, dvt. She agrees to proceed.
--- NOTE | 2025-05-04 12:26 | WPDANESEPPF ---
Anes - Initial Pre Proc Eval Procedure: Operation Date: 05/04/25 12:00 Proposed Procedures p Left Total Knee Arthroplasty - Carlyle Mesa MD Date/Time: 05/04/25 12:26 Surgeon: Carlyle Mesa MD Pre Op Diagnosis: left knee pain Patient Data Age: 84 Gender: F Height: 1.52 m Weight: 53.3 kg Last Vital Signs Temp 97.8 F 05/04/25 11:15 Pulse 78 05/04/25 11:15 Resp 16 05/04/25 11:15 BP 151/57 H 05/04/25 11:15 Pulse Ox 100 05/04/25 11:15 O2 Del Method Room Air 05/04/25 11:15 Allergies Allergy/AdvReac Type Severity Reaction Status Date / Time codeine Allergy Intermediate rash Verified 04/24/25 10:04 penicillin G Allergy Intermediate unknown Verified 04/24/25 10:04 levofloxacin (From Levaquin) AdvReac Severe itching, Verified 04/24/25 10:04 rash tumeric AdvReac Intermediate itching Uncoded 04/24/25 10:04 Home Medications ?Medication ?Instructions ?Recorded ?Confirmed ?Type B6 1.7 mg-folic 400 mcg-B12 2.4 1 cap PO DAILY 04/24/25 04/24/25 History mok-ptbjrr-iytcewdkzxgs oral capsule (Neuriva Plus Brain Performance) amitriptyline 50 mg tablet 50 mg PO HS 04/24/25 04/24/25 History atorvastatin 40 mg tablet 40 mg PO QPM 04/24/25 04/24/25 History diphenhydramine HCl 25 mg tablet 25 mg PO HS 04/24/25 04/24/25 History (Sleep Tablet (diphenhydramine)) docusate sodium 100 mg capsule 100 mg PO DAILY 04/24/25 04/24/25 History (Colace) levothyroxine 100 mcg tablet 100 mcg PO .day 04/24/25 04/24/25 History lifitegrast 5 % eye drops in a 1 drp EACH EYE Q12H 04/24/25 04/24/25 History dropperette (Xiidra) losartan 25 mg tablet 25 mg PO DAILY 04/24/25 04/24/25 History melatonin 10 mg capsule 10 mg PO .PM PRN sleep 04/24/25 04/24/25 History metformin 500 mg tablet,extended 500 mg PO DAILY 04/24/25 04/24/25 History release 24 hr omeprazole 40 mg capsule,delayed 40 mg PO DAILY 04/24/25 04/24/25 History release potassium 99 mg tablet 99 mg PO DAILY 04/24/25 04/24/25 History triamterene 75 0.5 tablet PO DAILY 04/24/25 04/24/25 History mg-hydrochlorothiazide 50 mg tablet vit C 250 mg-vit E 90 mg-zinc 40 1 tablet PO ONCE 04/24/25 04/24/25 History mg-copper 1 fh-pfoxcq-mgpjbo capsule (Eye Health AREDS-2) Laboratory Tests 05/04/25 11:21 POC Capillary Glucose 106 H mg/dl (65-105) Patient hx anesthesia problems: none Family hx anesthesia problems: none Results Review: All pre-operative results and documents have been reviewed as part of the pre-operative evaluation. [facility] Social History Social History Smoking packs per day: 0.5 Smoking cigarettes per day: 10.0 Years smoked: 50 Smoking pack-years: 25.00 Smoking status: Former smoker Tobacco type: cigarettes Smoking end date: 08/03/08 Alcohol intake: never Substance use: never Living arrangements: alone Spiritual care concerns: No Anes - Eval Final PreProcedure Day of Procedure 05/04/25 12:26 Patient weight: normal Lungs: normal air movement Airway: Mallampati scale class II Neurological: alert and oriented Last oral intake: >/= 8 hours ASA classification: II Emergent: no Anesthetic plan: proceed Anesthesia type and monitoring: general ETT and standard monitoring Results Review: All pre-operative results and documents have been reviewed as part of the pre-operative evaluation. Hyperlipidemia, hypothyroidism, DM fsbs 106. EKG NSR. Informed Consent: The patient's anesthetic plan and its attendant risks and benefits were discussed with the patient/family/POA. Questions were solicited and answers provided to the satisfaction of the patient/family/POA.
--- NOTE | 2025-05-04 12:42 | WPDANESEPPF ---
Anes - Initial Pre Proc Eval Procedure: Operation Date: 05/04/25 12:00 Proposed Procedures p Left Total Knee Arthroplasty - Carlyle Mesa MD Date/Time: 05/04/25 12:42 Surgeon: Carlyle Mesa MD Pre Op Diagnosis: left knee pain Patient Data Age: 84 Gender: F Height: 1.52 m Weight: 53.3 kg Last Vital Signs Temp 97.8 F 05/04/25 11:15 Pulse 78 05/04/25 11:15 Resp 16 05/04/25 11:15 BP 151/57 H 05/04/25 11:15 Pulse Ox 100 05/04/25 11:15 O2 Del Method Room Air 05/04/25 11:15 Allergies Allergy/AdvReac Type Severity Reaction Status Date / Time codeine Allergy Intermediate rash Verified 05/04/25 12:29 penicillin G Allergy Intermediate unknown Verified 05/04/25 12:29 levofloxacin (From Levaquin) AdvReac Severe itching, Verified 05/04/25 12:29 rash tumeric AdvReac Intermediate itching Uncoded 04/24/25 10:04 Home Medications ?Medication ?Instructions ?Recorded ?Confirmed ?Type B6 1.7 mg-folic 400 mcg-B12 2.4 1 cap PO DAILY 04/24/25 05/04/25 History gcv-pzkrts-sqlgqssepdiw oral capsule (Neuriva Plus Brain Performance) amitriptyline 50 mg tablet 50 mg PO HS 04/24/25 04/24/25 History atorvastatin 40 mg tablet 40 mg PO QPM 04/24/25 04/24/25 History diphenhydramine HCl 25 mg tablet 25 mg PO HS 04/24/25 04/24/25 History (Sleep Tablet (diphenhydramine)) docusate sodium 100 mg capsule 100 mg PO DAILY 04/24/25 04/24/25 History (Colace) levothyroxine 100 mcg tablet 100 mcg PO .day 04/24/25 04/24/25 History lifitegrast 5 % eye drops in a 1 drp EACH EYE Q12H 04/24/25 04/24/25 History dropperette (Xiidra) losartan 25 mg tablet 25 mg PO DAILY 04/24/25 04/24/25 History melatonin 10 mg capsule 10 mg PO .PM PRN sleep 04/24/25 04/24/25 History metformin 500 mg tablet,extended 500 mg PO DAILY 04/24/25 04/24/25 History release 24 hr omeprazole 40 mg capsule,delayed 40 mg PO DAILY 04/24/25 04/24/25 History release potassium 99 mg tablet 99 mg PO DAILY 04/24/25 05/04/25 History triamterene 75 0.5 tablet PO DAILY 04/24/25 04/24/25 History mg-hydrochlorothiazide 50 mg tablet vit C 250 mg-vit E 90 mg-zinc 40 1 tablet PO ONCE 04/24/25 05/04/25 History mg-copper 1 mq-vaagxv-cfjyrr capsule (Eye Health AREDS-2) Laboratory Tests 05/04/25 11:21 POC Capillary Glucose 106 H mg/dl (65-105) Patient hx anesthesia problems: none Family hx anesthesia problems: none Results Review: All pre-operative results and documents have been reviewed as part of the pre-operative evaluation. [facility] Social History Social History Smoking packs per day: 0.5 Smoking cigarettes per day: 10.0 Years smoked: 50 Smoking pack-years: 25.00 Smoking status: Former smoker Tobacco type: cigarettes Smoking end date: 08/03/08 Alcohol intake: never Substance use: never Living arrangements: alone Spiritual care concerns: No Anes - Eval Final PreProcedure Day of Procedure 05/04/25 12:42 Patient weight: normal and thin Lungs: normal air movement Airway: Mallampati scale class II and special considerations (Partial plate. ) Neurological: alert and oriented Last oral intake: >/= 8 hours ASA classification: III Emergent: no Anesthetic plan: proceed Anesthesia type and monitoring: general ETT and standard monitoring Results Review: All pre-operative results and documents have been reviewed as part of the pre-operative evaluation. Hyperlipidemia, hypothyroidism, DM fsbs 106. EKG reviewed, NSR. Informed Consent: The patient's anesthetic plan and its attendant risks and benefits were discussed with the patient/family/POA. Questions were solicited and answers provided to the satisfaction of the patient/family/POA.
--- NOTE | 2025-05-04 12:46 | PM.IMHP ---
H&P: HPI History of Present Illness Date/Time: 05/04/25 12:46 Chief Complaint: Left Knee Pain with dx of ;Osteoarthritis Narrative: 87-year-old female with end-stage left knee osteoarthritis who has failed conservative management with regards to multiple cortisone injections as well as hyaluronic acid injections, as well as oral anti-inflammatory medications and activity modifications. She is therefore indicated for left total knee replacement. [facility] Social History Social History Smoking packs per day: 0.5 Smoking cigarettes per day: 10.0 Years smoked: 50 Smoking pack-years: 25.00 Smoking status: Former smoker Tobacco type: cigarettes Smoking end date: 08/03/08 Alcohol intake: never Substance use: never Living arrangements: alone Spiritual care concerns: No Meds Home Medications and Allergies Home Medications ?Medication ?Instructions ?Recorded ?Confirmed ?Type B6 1.7 mg-folic 400 mcg-B12 2.4 1 cap PO DAILY 04/24/25 05/04/25 History vys-yuhupp-igbnmdiwvitn oral capsule (Neuriva Plus Brain Performance) amitriptyline 50 mg tablet 50 mg PO HS 04/24/25 04/24/25 History atorvastatin 40 mg tablet 40 mg PO QPM 04/24/25 04/24/25 History diphenhydramine HCl 25 mg tablet 25 mg PO HS 04/24/25 04/24/25 History (Sleep Tablet (diphenhydramine)) docusate sodium 100 mg capsule 100 mg PO DAILY 04/24/25 04/24/25 History (Colace) levothyroxine 100 mcg tablet 100 mcg PO .day 04/24/25 04/24/25 History lifitegrast 5 % eye drops in a 1 drp EACH EYE Q12H 04/24/25 04/24/25 History dropperette (Xiidra) losartan 25 mg tablet 25 mg PO DAILY 04/24/25 04/24/25 History melatonin 10 mg capsule 10 mg PO .PM PRN sleep 04/24/25 04/24/25 History metformin 500 mg tablet,extended 500 mg PO DAILY 04/24/25 04/24/25 History release 24 hr omeprazole 40 mg capsule,delayed 40 mg PO DAILY 04/24/25 04/24/25 History release potassium 99 mg tablet 99 mg PO DAILY 04/24/25 05/04/25 History triamterene 75 0.5 tablet PO DAILY 04/24/25 04/24/25 History mg-hydrochlorothiazide 50 mg tablet vit C 250 mg-vit E 90 mg-zinc 40 1 tablet PO ONCE 04/24/25 05/04/25 History mg-copper 1 no-rgqect-rcuesc capsule (Eye Health AREDS-2) Allergies Allergy/AdvReac Type Severity Reaction Status Date / Time codeine Allergy Intermediate rash Verified 05/04/25 12:29 penicillin G Allergy Intermediate unknown Verified 05/04/25 12:29 levofloxacin (From Levaquin) AdvReac Severe itching, Verified 05/04/25 12:29 rash tumeric AdvReac Intermediate itching Uncoded 04/24/25 10:04 Vital Signs Vital Signs - 24 hr 05/04/25 11:15 Temperature 36.6 C Pulse Rate 78 Respiratory Rate 16 Blood Pressure 151/57 H Pulse Oximetry 100 Oxygen Delivery Room Air Exam Narrative: Left Knee Varus deformity with intact sensation and palpable DP Pulse. Tenderness medially as well as swelling noted. Const: General: cooperative and healthy appearing Assessment and Plan Assessment and plan (1) Arthritis of left knee: Code(s): M17.12 - Unilateral primary osteoarthritis, left knee Status: Acute Assessment and Plan: 87-year-old female with end-stage left knee osteoarthritis who has failed conservative management with regards to multiple cortisone injections as well as hyaluronic acid injections, as well as oral anti-inflammatory medications and activity modifications. She is therefore indicated for left total knee replacement. Risks benefits alternatives and complications discussed with patient. She agrees to proceed.
--- NOTE | 2025-05-04 13:00 | WPDANESPNB ---
Anes - Peripheral Nerve Block Date/Time: 05/04/25 13:00 I have discussed with the patient/family/POA the placement of a peripheral nerve block for post-operative pain management, including associated risks, benefits, complications, and side effects. Alternative methods of post-operative analgesia were detailed. Questions were solicited and answers provided to the satisfaction of the patient/family/POA. Time-Out: A pre-procedural Time-Out was completed immediately before starting the procedure and confirmed: Patient Identification, Site, Procedure, Patient Position and the Availability of Requisite Equipment. Clinical Indications: Acute post-operative pain management requested by the operative surgeon. Nerve Block Insertion Note Anes-nerve block: adductor canal left Patient position: supine Skin prep: chlorhexidine Needle: 22 gauge, stimulating, insulated echogenic needle. Needle length: 80 mm Technique: ultrasound Injectate: other (Bupiv 0.5% 10 mls. ) Observations: tolerated well Complications: none Procedure start time:: 1245 Procedure end time:: 1255
[2025-05-04] MEDS: ceFAZolin 2 GM in SODIUM CHLORIDE 0.9% IV 50 ML 100 ML IVPB ×2 (13:30→21:20)
[2025-05-04] MEDS: SODIUM CHLORIDE 0.9% IV 37.7 ML, MORPHINE SULFATE INJ (*CRX) 2 MG, ROPivacaine HCL 1% 2... INFILTRATE (13:58)
--- NOTE | 2025-05-04 15:46 | P.OP_ITS ---
Procedure Note - Detailed Date of Procedure 05/04/25 Pre-op Diagnosis left knee pain osteoathritis Post-op Diagnosis Same Procedure Performed Left Total Knee Replacement Surgeon Carlyle Mesa MD Anesthesia General Indications 84 yr old female with end stage Left Knee Osteoarthritis. Fail conservative management, including steroid and WALTON injection and activity modification as well as Oral NSAIDs. Xrays confirm diagnosis with complete joint space loss over the medial joint space as well as osteophyte formation and subchonrral sclerosis. Findings End Stage osteoarthritis Description of Procedure After obtaining consent for the left total knee replacement the interview with the holding area, the left knee was then marked in the holding area. I answered all the patient's questions in the holding area regarding the procedure and again went over the procedure with the patient and her family also went over the risks benefits alternatives and complications of left total knee replacement once again and they agreed to proceed. The patient was then brought to the operating room placed in the supine position which time she underwent general anesthesia left lower extremity was then prepped and draped in the standard sterile fashion. Tourniquet was not used for this procedure. A time-out was performed to verify correct patient correct side surgery and correct procedure as well as verifying that 2 g of Ancef were administered within 1 incision time. After the time-out was performed by the end proceeded to create an incision of the anterior aspect of patient's left knee and the dissection was carried down into identified at the patella and did a medial arthrotomy. Identified the distal femur remove all the osteophytes of the distal femur as well as the proximal tibia. He had significant subchondral sclerosis specifically over the medial tibial plateau as well as the medial femoral condyle. A moderate medial release. After this was done index expose the distal femur and placed int ramedullary evy into the femoral canal and then proceeded to place my cutting guide to do my distal femoral cut. A size 4? of valgus. I then removed 8 mm of the medial side approximately 4 mm off the lateral side. This was the measurement of the resection. I then placed my cutting guide over the distal femur to obtain 4? of external rotation aligned with Whitesides line. I then proceeded to place my 4 in 1 cutting block and by anterior-posterior cuts anterior-posterior chamfer cuts. I then turned my attention the tibia which time I used an external cutting guide in order to remove 4 mm off the medial side and 8 mm off the lateral side of my resection. I then proceeded to trial and noted that this was the adequate amount of bone that was resected with excellent full extension and the medial and lateral sides of the knee balanced very well in full extension as well as flexion the patella tracked perfectly. I then proceeded to prepare my proximal tibia cut that I placed my tibial implant in and I placed my 9 mm polyethylene spacer and I placed the femoral component in last. I then did the last bili check and noted that she had equal left equal tension mediolateral side the flexion and extension and the patella tracked perfectly. I then proceeded to irrigate copiously with pulsatile lavage and injected the subcutaneous as well as the deeper tissues with anesthetic local anesthetic injection. I then proceeded to close the medial arthrotomy using Ethibond suture and closed the skin using 2-0 Vicryl suture and glue and then I placed a sterile dressing on the left knee she was then transferred to recovery room stable condition. There were no complications Implants A Reading noncemented size 3 tibia and size 3 femur with a 9 polyethylene spacer Estimated Blood Loss 100 Drains No Packing No Pathology None sent Complications No immediate complications Condition Stable Disposition PACU
[2025-05-04] MEDS: fentaNYL CITRATE INJ (*CRX) 100 MCG/2 ML VIAL 25 MCG IV PUSH ×4 (15:57→16:29)
--- NOTE | 2025-05-04 17:24 | ADMGEN ---
This patient, Emma Corey, was admitted to [facility] Surg Room 325-01. Patient/family oriented to hospital policies and general routines including ID bracelet, bed and alarms, visiting hours, pain management, procedures, bathroom and other care routines, personal items, smoking policy, room service/diet, and visiting hours. Information on how to activate the Rapid Response Team has been discussed. Patient/Family are encouraged to report perceived risks to care and to ask questions if they do not understand what they are told or what they should do.
[2025-05-04] MEDS: SENNA/DOCUSATE SODIUM TABLET 2 TAB PO (17:39)
[2025-05-04] MEDS: ATORVASTATIN 40 MG TABLET PO (17:39)
[2025-05-04] MEDS: SODIUM CHLORIDE 0.9% IV 1,000 ML 125 ML IV CONT (17:39)
[2025-05-04] MEDS: HYDROmorphone HCL INJ (*CRX) 1 MG/ML SYR 0.5 MG IV PUSH (18:08)
[2025-05-04] MEDS: diphenhydrAMINE HCl CAP 25 MG CAPSULE PO (21:19)
[2025-05-04] MEDS: FAMOTIDINE 20 MG TABLET PO (21:19)
[2025-05-04] MEDS: HYDROcodone/acetaminophen (*CRX) 7.5-325 MG TABLET 1 TAB PO (21:19)
[2025-05-04] MEDS: ASPIRIN 81 MG ENTERIC TABLET PO (21:20)
[2025-05-05] VITALS (7 sets, daily range): BP systolic 128–174; BP diastolic 48–71; PULSE 71–101; RESP 14–20; TEMP 35.9–36.7; O2SAT 94–100
--- NOTE | ~2025-05-05 | XR_ITS ---
EXAMINATION: [id number] DATE: 05/04/2025 15:57 INDICATION: Postoperative evaluation following left total knee arthroplasty. TECHNIQUE: Anteroposterior and lateral views of the left knee were obtained. COMPARISON: None. FINDINGS: Left total knee arthroplasty without patellar resurfacing appears well seated and in near anatomic alignment. No fractures identified. Expected postoperative subcutaneous and intra-articular gas. IMPRESSION: 1. Left total knee arthroplasty, negative for postoperative purposes. Reviewed, dictated and finalized at location A.
[2025-05-05] MEDS: HYDROmorphone HCL INJ (*CRX) 1 MG/ML SYR IV PUSH ×2 (00:05→22:50)
[2025-05-05] MEDS: LEVOTHYROXINE SODIUM 100 MCG TABLET PO (05:24)
[2025-05-05] MEDS: HYDROcodone/acetaminophen (*CRX) 7.5-325 MG TABLET 1 TAB PO ×4 (05:24→20:20)
[2025-05-05] MEDS: ceFAZolin 2 GM in SODIUM CHLORIDE 0.9% IV 50 ML 100 ML IVPB ×2 (05:25→13:08)
[2025-05-05 06:07] LABS: Hematocrit 33.3 % (37.0-47.0); Hemoglobin 10.3 g/dL (12.0-15.0); Immature Granulocyte Percent A 0.4 % (0-0.5); Lymphocytes Absolute Auto 1.56 K/mm3 (0.9-3.2); Mean Corpuscular HGB Conc 30.9 g/dl (32-36); Mean Corpuscular Hemoglobin 28.6 pg (26-34); Mean Corpuscular Volume 92.5 fl (80-100); Nucleated Red Blood Cells Absolute Auto 0.000 K/mm3 (0.0-0.012); Nucleated Red Blood Cells Perc 0.0 % (0.0-0.2); Platelet Count Result 270 k/mm3 (150-375); Red Blood Count 3.60 M/mm3 (4.2-5.4); White Blood Count 14.6 K/mm3 (4.5-10.0)
[2025-05-05 07:31] LABS: Anion Gap 6 mmol/L (4-12); Blood Urea Nitrogen 15 mg/dL (7-17); Calcium 8.3 mg/dL (8.4-10.2); Carbon Dioxide 28 mmol/L (22-30); Chloride 101 mmol/L (98-107); Estimated CRCL calculation 40 ml/min; Estimated Glomerular Filt Rate > 60; Glucose 125 mg/dL (65-110); Potassium 4.4 mmol/L (3.4-5.0); Sodium 135 mmol/L (137-145)
[2025-05-05] MEDS: ASPIRIN 81 MG ENTERIC TABLET PO ×2 (08:40→20:20)
[2025-05-05] MEDS: HYDROmorphone HCL INJ (*CRX) 1 MG/ML SYR 0.5 MG IV PUSH ×4 (08:40→19:49)
[2025-05-05] MEDS: metFORMIN HCL XR 500 MG TAB.SR.24H PO (08:40)
[2025-05-05] MEDS: LOSARTAN POTASSIUM 25 MG TABLET PO (08:40)
[2025-05-05] MEDS: FAMOTIDINE 20 MG TABLET PO ×2 (08:40→20:21)
[2025-05-05] MEDS: OPTI-GEN TAB 1 TABLET PO (08:40)
[2025-05-05] MEDS: SENNA/DOCUSATE SODIUM TABLET 2 TAB PO ×2 (08:40→17:04)
--- NOTE | 2025-05-05 12:35 | PM.IMCN ---
Assessment and Plan Assessment and plan (1) Arthritis of left knee: Code(s): M17.12 - Unilateral primary osteoarthritis, left knee Status: Acute Plan Right knee osteoarthritis s/p replacement continue Pain control and DVT prophylaxis per surgical team monitor HTN BP wnl continue home Losartan Hypothyroidism continue home Levothyroxine HLD continue statin DVT prophylaxis per surgical team Full code HPI Date of Consult Consult date: 05/05/25 Requesting Physician: Carlyle Mesa MD Primary Care Provider: Lori Lancaster Consult Narrative Narrative: Emma Corey is a 84 year old female with PMH of Hypothyroidism, HTN and HLD and left knee osteoarthritis for whom we were consulted for medical management. Patient denies any chest pain, SOB, vomiting, abd pain or diarrhea, [facility] Surgery done yesterday and patinet rested comfortably at bedside vital sign stabel adn wound site clean and dry. Review of Systems Review of Systems: All other systems were reviewed and negative except as noted in the HPI above [facility] [place] Social History Social History Smoking packs per day: 0.5 Smoking cigarettes per day: 10.0 Years smoked: 50 Smoking pack-years: 25.00 Smoking status: Former smoker Alcohol intake: never Substance use: never Substance use type: does not use Lack of Transportation: No Lack of Food: Never True Current Housing: I Have Housing Concerned About Future Housing: No Difficulty Paying Gas/Electric Bills: No Difficulty Paying for Meds: No Currently Unemployed: No Education: High School Diploma/GED Difficulty w/ Childcare or Family Care: No Living arrangements: alone Spiritual care concerns: No Meds Home Medications and Allergies Home Medications ?Medication ?Instructions ?Recorded ?Confirmed ?Type B6 1.7 mg-folic 400 mcg-B12 2.4 1 cap PO DAILY 04/24/25 05/04/25 History [id number] oral capsule (Neuriva Plus Brain Performance) amitriptyline 50 mg tablet 50 mg PO HS 04/24/25 04/24/25 History atorvastatin 40 mg tablet 40 mg PO QPM 04/24/25 04/24/25 History diphenhydramine HCl 25 mg tablet 25 mg PO HS 04/24/25 04/24/25 History (Sleep Tablet (diphenhydramine)) docusate sodium 100 mg capsule 100 mg PO DAILY 04/24/25 04/24/25 History (Colace) levothyroxine 100 mcg tablet 100 mcg PO .day 04/24/25 04/24/25 History lifitegrast 5 % eye drops in a 1 drp EACH EYE Q12H 04/24/25 04/24/25 History dropperette (Xiidra) losartan 25 mg tablet 25 mg PO DAILY 04/24/25 04/24/25 History melatonin 10 mg capsule 10 mg PO .PM PRN sleep 04/24/25 04/24/25 History metformin 500 mg tablet,extended 500 mg PO DAILY 04/24/25 04/24/25 History release 24 hr omeprazole 40 mg capsule,delayed 40 mg PO DAILY 04/24/25 04/24/25 History release potassium 99 mg tablet 99 mg PO DAILY 04/24/25 05/04/25 History triamterene 75 0.5 tablet PO DAILY 04/24/25 04/24/25 History mg-hydrochlorothiazide 50 mg tablet vit C 250 mg-vit E 90 mg-zinc 40 1 tablet PO ONCE 04/24/25 05/04/25 History mg-copper 1 [id number] capsule ([facility] AREDS-2) Allergies Allergy/AdvReac Type Severity Reaction Status Date / Time codeine Allergy Intermediate rash Verified 05/04/25 17:25 penicillin G Allergy Intermediate unknown Verified 05/04/25 12:29 levofloxacin (From Levaquin) AdvReac Severe itching, Verified 05/04/25 17:25 rash Vital Signs Vital Signs - 24 hr 05/04/25 15:40 05/04/25 15:55 05/04/25 16:10 Temperature 98.1 F Pulse Rate 72 71 71 Respiratory Rate 14 14 14 Blood Pressure 136/49 L 139/52 L 145/51 H Pulse Oximetry 100 100 96 Oxygen Delivery Simple Face Mask Room Air Room Air Oxygen Flow Rate 6 05/04/25 16:25 05/04/25 16:40 05/04/25 17:10 Temperature 97.2 F L 96.9 F L Pulse Rate 72 72 71 Respiratory Rate 14 14 14 Blood Pressure 145/50 H 154/59 H 161/62 H Pulse Oximetry 94 95 100 Oxygen Delivery Room Air Room Air Oxygen Flow Rate 05/04/25 17:19 05/04/25 17:55 05/04/25 17:55 Temperature 97.1 F L 97.5 F L Pulse Rate 70 73 Respiratory Rate 16 14 Blood Pressure 158/54 H 154/51 H Pulse Oximetry 98 99 Oxygen Delivery Room Air Oxygen Flow Rate 05/04/25 18:55 05/04/25 21:19 05/05/25 00:43 Temperature 97.2 F L 97.3 F L 97.6 F Pulse Rate 73 78 71 Respiratory Rate 16 20 20 Blood Pressure 141/48 H 155/46 H 137/71 Pulse Oximetry 99 98 98 Oxygen Delivery Oxygen Flow Rate 05/05/25 05:19 05/05/25 08:00 05/05/25 08:35 Temperature 97.9 F Pulse Rate 71 Respiratory Rate 20 Blood Pressure 137/48 L Pulse Oximetry 100 Oxygen Delivery Room Air Room Air Oxygen Flow Rate 05/05/25 09:13 05/05/25 09:19 Temperature 98.1 F Pulse Rate 74 Respiratory Rate 18 Blood Pressure 128/52 L Pulse Oximetry 100 Oxygen Delivery Room Air Oxygen Flow Rate Exam Narrative: General: alert and comfortable Eyes: EOMI, PERRLA ENNT External ears normal, Neck is supple, no masses, Respiratory systems: Clear to auscultation Cardiovascular S1, S2, normal rhythm, no murmur, rub, or gallop; no thrill or palpable murmurs on palpation. Gastrointestinal: soft, non-tender, and non-distended abdomen with no masses; BS present Skin: no rash, lesions, ulcerations, subcutaneous nodules or induration Musculoskeletal: Right knee wound dressing clean and dry Neurologic: Alert and oriented x3, non focal Mental Status Exam: normal affect Results Labs 05/05/25 05:58 05/05/25 05:58 Labs: Short CBC 05/05/25 Range/Units 05:58 WBC 14.6 H (4.5-10.0) K/mm3 Hgb 10.3 L (12.0-15.0) g/dL Hct 33.3 L (37.0-47.0) % Plt Count 270 (150-375) k/mm3 BMP 05/05/25 05:58 Sodium 135 L Potassium 4.4 Chloride 101 Carbon Dioxide 28 BUN 15 Creatinine 0.67 L Glucose 125 H Calcium 8.3 L Hospitalist MIPS Advance Care Plan I have confirmed that the patient's Advanced Care Plan is present, code status is documented, or surrogate decision maker is listed in patient medical record.: Yes Medication Reconciliation I have utilized all available resources to obtain, update and review the patients current medications (includes all prescriptions, OTC, herbals, cannabis, and nutritional supplements).: Yes
--- NOTE | 2025-05-05 13:20 | PCPTNOTE ---
Attempted to see aptient for PT, however patient refused due to pain.
--- NOTE | 2025-05-05 14:01 | PM.PNORT ---
Progress Note: A&P Assessment and Plan (1) Arthritis of left knee: Code(s): M17.12 - Unilateral primary osteoarthritis, left knee Status: Acute Plan pod 1 doing well - cont physical therapy - possible discharge tomorrow Subjective Subjective Date/Time Seen: 05/05/25 14:01 Principal diagnosis: s/p Left TKA Interval history: Moderate Left Knee Pain Exam Narrative: Left knee bandaged and dry Objective Data Vital Signs Vital Signs: Vital Signs - 24 hr 05/04/25 15:40 05/04/25 15:55 05/04/25 16:10 Temperature 36.7 C Pulse Rate 72 71 71 Respiratory Rate 14 14 14 Blood Pressure 136/49 L 139/52 L 145/51 H Pulse Oximetry 100 100 96 Oxygen Delivery Simple Face Mask Room Air Room Air Oxygen Flow Rate 6 05/04/25 16:25 05/04/25 16:40 05/04/25 17:10 Temperature 36.2 C L 36.1 C L Pulse Rate 72 72 71 Respiratory Rate 14 14 14 Blood Pressure 145/50 H 154/59 H 161/62 H Pulse Oximetry 94 95 100 Oxygen Delivery Room Air Room Air Oxygen Flow Rate 05/04/25 17:19 05/04/25 17:55 05/04/25 17:55 Temperature 36.2 C L 36.4 C L Pulse Rate 70 73 Respiratory Rate 16 14 Blood Pressure 158/54 H 154/51 H Pulse Oximetry 98 99 Oxygen Delivery Room Air Oxygen Flow Rate 05/04/25 18:55 05/04/25 21:19 05/05/25 00:43 Temperature 36.2 C L 36.3 C L 36.4 C Pulse Rate 73 78 71 Respiratory Rate 16 20 20 Blood Pressure 141/48 H 155/46 H 137/71 Pulse Oximetry 99 98 98 Oxygen Delivery Oxygen Flow Rate 05/05/25 05:19 05/05/25 08:00 05/05/25 08:35 Temperature 36.6 C Pulse Rate 71 Respiratory Rate 20 Blood Pressure 137/48 L Pulse Oximetry 100 Oxygen Delivery Room Air Room Air Oxygen Flow Rate 05/05/25 09:13 05/05/25 09:19 Temperature 36.7 C Pulse Rate 74 Respiratory Rate 18 Blood Pressure 128/52 L Pulse Oximetry 100 Oxygen Delivery Room Air Oxygen Flow Rate Intake/Output Intake/Output: Intake & Output 05/02/25 05/03/25 05/04/25/03/25 23:59 23:59 23:59 23:59 Intake Total 350 450 Balance 350 450 Meds/Results Medications: Active Medications Generic Name Dose Route Start Last Admin Trade Name Freq PRN Reason Stop Dose Admin Hydrocodone Bitart/Acetaminophen 1 tab 05/04/25 15:34 05/05/25 10:24 Hydrocodone/Acetaminophen (*Crx) 7.5-325 Mg Tablet PO 1 tab Q4H PRN Administration Pain Rated 7-10 Amitriptyline HCl 50 mg 05/05/25 21:00 Amitriptyline Hcl 25 Mg Tablet PO HS MARKELL Aspirin 81 mg 05/04/25 21:00 05/05/25 08:40 Aspirin 81 Mg Enteric Tablet PO 81 mg Q12HR MARKELL Administration Atorvastatin Calcium 40 mg 05/04/25 18:00 05/04/25 17:39 Atorvastatin 40 Mg Tablet PO 40 mg QPM MARKELL Administration Diphenhydramine HCl 25 mg 05/04/25 15:34 Diphenhydramine Hcl Inj 50 Mg/Ml Vial IV PUSH Q6H PRN Itching Diphenhydramine HCl 25 mg 05/04/25 21:00 05/04/25 21:19 Diphenhydramine Hcl Cap 25 Mg Capsule PO 25 mg HS MARKELL Administration Famotidine 20 mg 05/04/25 21:00 05/05/25 08:40 Famotidine 20 Mg Tablet PO 20 mg Q12HR MARKELL Administration Hydromorphone HCl 1 mg 05/04/25 15:34 05/05/25 00:05 Hydromorphone Hcl Inj (*Crx) 1 Mg/Ml Syr IV PUSH 1 mg Q2H PRN Administration Breakthrough Pain Rated 7-10 or NPO Hydromorphone HCl 0.5 mg 05/04/25 15:34 05/05/25 13:07 Hydromorphone Hcl Inj (*Crx) 1 Mg/Ml Syr IV PUSH 0.5 mg Q2H PRN Administration Breakthrough Pain Rated 4-6 or NPO Ibuprofen 800 mg in 200 mls @ 400 mls/hr 05/04/25 15:34 Caldolor 800 Mg/200 Ml IVPB Q6H PRN IF NPO Ibuprofen 400 mg 05/04/25 15:34 Ibuprofen 400 Mg Tablet PO Q6H PRN Pain Rated 1-3 Ibuprofen 600 mg 05/04/25 15:34 Ibuprofen 600 Mg Tablet PO Q6H PRN Pain Rated 4-6 Levothyroxine Sodium 100 mcg 05/05/25 06:30 05/05/25 05:24 Levothyroxine Sodium 100 Mcg Tablet PO 100 mcg DAILY@0630 MARKELL Administration Losartan Potassium 25 mg 05/05/25 09:00 05/05/25 08:40 Losartan Potassium 25 Mg Tablet PO 25 mg DAILY MARKELL Administration Melatonin 10 mg 05/04/25 15:41 Melatonin 5 Mg Tablet PO HS PRN Sleep Metformin HCl 500 mg 05/05/25 09:00 05/05/25 08:40 Metformin Hcl Xr 500 Mg Tab.Sr.24h PO 500 mg DAILY MARKELL Administration Miscellaneous Information 1 each 05/04/25 00:01 Nonformulary Drug (Lifitegrast [Xiidra] 5 % Dropperette)Can Patient Use From Home? XX 06/03/25 00:00 CLARIFY REPLACED BY [facility] Multivitamins/Minerals 1 tablet 05/05/25 09:00 05/05/25 08:40 Opti-Gen Tab PO 1 tablet QAM MARKELL Administration Naloxone HCl 0.1 mg 05/04/25 15:34 Naloxone Hcl 0.4 Mg/Ml Vial IV PUSH Q2M PRN Opiate Reversal Non-Formulary Medication 1 drop 05/04/25 15:45 Lifitegrast [Xiidra] EACH EYE 06/03/25 15:44 Q12H REPLACED BY [facility] Non-Formulary Medication 1 each 05/04/25 16:12 Nonformulary Nutritional Supplement XX 05/05/25 16:11 PRN PRN PROTOCOL Ondansetron HCl 4 mg 05/04/25 15:34 Ondansetron Inj 4 Mg/2 Ml Vial IV PUSH Q4H PRN Nausea And Vomiting Polyethylene Glycol 17 gm 05/05/25 09:00 05/05/25 08:40 Polyethylene Glycol 3350 17 Gm Powd.Pack PO 17 gm QAM MARKELL Administration Senna/Docusate Sodium 2 tab 05/04/25 17:00 05/05/25 08:40 Senna/Docusate Sodium Tablet PO 2 tab BID MARKELL Administration Radiology Results: ITS Impressions Knee X-Ray 05/04/25 15:59 IMPRESSION: 1. Left total knee arthroplasty, negative for postoperative purposes. Labs Labs: Laboratory Results - last 24 hr 05/04/25 05/05/25 15:45 05:58 WBC 14.6 H RBC 3.60 L Hgb 10.3 L Hct 33.3 L MCV 92.5 MCH 28.6 MCHC 30.9 L RDW 14.0 Plt Count 270 MPV 10.8 H Immature Gran % (Auto) 0.4 Neut % (Auto) 78.0 H Lymph % (Auto) 10.7 L [place] % (Auto) 10.5 H Eos % (Auto) 0.1 Baso % (Auto) 0.3 Lymph # (Auto) 1.56 [place] # (Auto) 1.5 H Eos # (Auto) 0.0 Baso # (Auto) 0.0 Abs Immat Gran (auto) 0.06 H Absolute Neuts (auto) 11.4 H Absolute Nucleated RBC 0.000 Nucleated RBC % 0.0 Sodium 135 L Potassium 4.4 Chloride 101 Carbon Dioxide 28 Anion Gap 6 BUN 15 Creatinine 0.67 L Estim Creat Clear Calc 40 Estimated GFR > 60 Glucose 125 H POC Capillary Glucose 130 H Calcium 8.3 L
[2025-05-05] MEDS: ATORVASTATIN 40 MG TABLET PO (17:04)
[2025-05-05] MEDS: diphenhydrAMINE HCl CAP 25 MG CAPSULE PO (20:21)
[2025-05-05] MEDS: AMITRIPTYLINE HCL 25 MG TABLET 50 MG PO (20:21)
[2025-05-06] MEDS: HYDROcodone/acetaminophen (*CRX) 7.5-325 MG TABLET 1 TAB PO ×5 (02:07→20:14)
[2025-05-06] MEDS: HYDROmorphone HCL INJ (*CRX) 1 MG/ML SYR IV PUSH (04:00)
[2025-05-06 05:28] VITALS: BP 125/42; PULSE 55; RESP 14; TEMP 36.5; O2SAT 90
[2025-05-06] MEDS: LEVOTHYROXINE SODIUM 100 MCG TABLET PO (06:21)
[2025-05-06 06:22] LABS: Hematocrit 34.3 % (37.0-47.0); Hemoglobin 10.9 g/dL (12.0-15.0); Immature Granulocyte Percent A 0.5 % (0-0.5); Lymphocytes Absolute Auto 0.89 K/mm3 (0.9-3.2); Mean Corpuscular HGB Conc 31.8 g/dl (32-36); Mean Corpuscular Hemoglobin 29.1 pg (26-34); Mean Corpuscular Volume 91.5 fl (80-100); Nucleated Red Blood Cells Absolute Auto 0.000 K/mm3 (0.0-0.012); Nucleated Red Blood Cells Perc 0.0 % (0.0-0.2); Platelet Count Result 268 k/mm3 (150-375); Red Blood Count 3.75 M/mm3 (4.2-5.4); White Blood Count 17.5 K/mm3 (4.5-10.0)
[2025-05-06 06:42] LABS: Hemoglobin A1C 6.2 % (<5.7)
[2025-05-06 06:48] LABS: Alanine Aminotransferase 17 U/L (6-35); Albumin Level 3.6 g/dL (3.5-5.1); Alkaline Phosphatase 90 U/L (38-126); Anion Gap 6 mmol/L (4-12); Aspartate Amino Transferase 33 U/L (14-36); Bilirubin,Total 0.4 mg/dL (0.2-1.3); Blood Urea Nitrogen 15 mg/dL (7-17); Calcium 8.4 mg/dL (8.4-10.2); Carbon Dioxide 28 mmol/L (22-30); Chloride 97 mmol/L (98-107); Estimated CRCL calculation 46 ml/min; Estimated Glomerular Filt Rate > 60; Glucose 146 mg/dL (65-110); Magnesium 1.7 mg/dL (1.6-2.3); Potassium 3.8 mmol/L (3.4-5.0); Sodium 131 mmol/L (137-145); Total Protein 6.4 g/dL (6.3-8.2)
[2025-05-06] MEDS: OPTI-GEN TAB 1 TABLET PO (09:11)
[2025-05-06] MEDS: LOSARTAN POTASSIUM 25 MG TABLET PO (09:11)
[2025-05-06] MEDS: SENNA/DOCUSATE SODIUM TABLET 2 TAB PO ×2 (09:11→17:00)
[2025-05-06] MEDS: FAMOTIDINE 20 MG TABLET PO ×2 (09:11→20:15)
[2025-05-06] MEDS: metFORMIN HCL XR 500 MG TAB.SR.24H PO (09:11)
[2025-05-06] MEDS: ASPIRIN 81 MG ENTERIC TABLET PO ×2 (09:12→20:15)
--- NOTE | 2025-05-06 11:58 | P.PNIM_ITS ---
Progress Note: A&P Assessment and Plan (1) Arthritis of left knee: Code(s): M17.12 - Unilateral primary osteoarthritis, left knee Status: Acute Plan Right knee osteoarthritis s/p replacement continue Pain control and DVT prophylaxis per surgical team monitor HTN BP wnl continue home Losartan Hypothyroidism continue home Levothyroxine HLD continue statin DVT prophylaxis per surgical team Patient is stable for discharge medical team Subjective Date/time seen: 05/06/25 11:58 Interval history: Comfortable at bedside Review of Systems Review of Systems: All other systems were reviewed and negative except as noted in the HPI above Exam Narrative: General: alert and comfortable Eyes: EOMI, PERRLA ENNT External ears normal, Neck is supple, no masses, Respiratory systems: Clear to auscultation Cardiovascular S1, S2, normal rhythm, no murmur, rub, or gallop; no thrill or palpable murmurs on palpation. Gastrointestinal: soft, non-tender, and non-distended abdomen with no masses; BS present Skin: no rash, lesions, ulcerations, subcutaneous nodules or induration Musculoskeletal: Right knee wound dressing clean and dry Neurologic: Alert and oriented x3, non focal Mental Status Exam: normal affect Objective Data Vital Signs Vital Signs: Vital Signs - 24 hr 05/05/25 14:00 05/05/25 17:19 05/05/25 20:00 Temperature 97.5 F L 97.5 F L Pulse Rate 80 90 Respiratory Rate 20 20 Blood Pressure 157/57 H 162/52 H Pulse Oximetry 99 100 Oxygen Delivery Room Air 05/05/25 20:10 05/05/25 23:46 05/06/25 05:28 Temperature 97 F L 96.6 F L 97.7 F Pulse Rate 101 H 89 55 L Respiratory Rate 16 14 14 Blood Pressure 174/48 H 172/50 H 125/42 L Pulse Oximetry 100 94 90 Oxygen Delivery 05/06/25 08:00 05/06/25 10:16 Temperature Pulse Rate Respiratory Rate Blood Pressure Pulse Oximetry Oxygen Delivery Room Air Room Air Intake/Output Intake/Output: Intake & Output 05/03/25 05/04/25 05/05/25 05/06/25 23:59 23:59 23:59 23:59 Intake Total 350 1210 250 Balance 350 1210 250 Meds/Results Medications: Active Medications Generic Name Dose Route Start Last Admin Trade Name Freq PRN Reason Stop Dose Admin Hydrocodone Bitart/Acetaminophen 1 tab 05/04/25 15:34 05/06/25 10:21 Hydrocodone/Acetaminophen (*Crx) 7.5-325 Mg Tablet PO 1 tab Q4H PRN Administration Pain Rated 7-10 Amitriptyline HCl 50 mg 05/05/25 21:00 05/05/25 20:21 Amitriptyline Hcl 25 Mg Tablet PO 50 mg HS MARKELL Administration Aspirin 81 mg 05/04/25 21:00 05/06/25 09:12 Aspirin 81 Mg Enteric Tablet PO 81 mg Q12HR MARKELL Administration Atorvastatin Calcium 40 mg 05/04/25 18:00 05/05/25 17:04 Atorvastatin 40 Mg Tablet PO 40 mg QPM MARKELL Administration Diphenhydramine HCl 25 mg 05/04/25 15:34 Diphenhydramine Hcl Inj 50 Mg/Ml Vial IV PUSH Q6H PRN Itching Diphenhydramine HCl 25 mg 05/04/25 21:00 05/05/25 20:21 Diphenhydramine Hcl Cap 25 Mg Capsule PO 25 mg HS MARKELL Administration Famotidine 20 mg 05/04/25 21:00 05/06/25 09:11 Famotidine 20 Mg Tablet PO 20 mg Q12HR MARKELL Administration Hydromorphone HCl 1 mg 05/04/25 15:34 05/06/25 04:00 Hydromorphone Hcl Inj (*Crx) 1 Mg/Ml Syr IV PUSH 1 mg Q2H PRN Administration Breakthrough Pain Rated 7-10 or NPO Hydromorphone HCl 0.5 mg 05/04/25 15:34 05/05/25 19:49 Hydromorphone Hcl Inj (*Crx) 1 Mg/Ml Syr IV PUSH 0.5 mg Q2H PRN Administration Breakthrough Pain Rated 4-6 or NPO Ibuprofen 800 mg in 200 mls @ 400 mls/hr 05/04/25 15:34 Caldolor 800 Mg/200 Ml IVPB Q6H PRN IF NPO Ibuprofen 400 mg 05/04/25 15:34 Ibuprofen 400 Mg Tablet PO Q6H PRN Pain Rated 1-3 Ibuprofen 600 mg 05/04/25 15:34 Ibuprofen 600 Mg Tablet PO Q6H PRN Pain Rated 4-6 Levothyroxine Sodium 100 mcg 05/05/25 06:30 05/06/25 06:21 Levothyroxine Sodium 100 Mcg Tablet PO 100 mcg DAILY@0630 MARKELL Administration Losartan Potassium 25 mg 05/05/25 09:00 05/06/25 09:11 Losartan Potassium 25 Mg Tablet PO 25 mg DAILY MARKELL Administration Melatonin 10 mg 05/04/25 15:41 Melatonin 5 Mg Tablet PO HS PRN Sleep Metformin HCl 500 mg 05/05/25 09:00 05/06/25 09:11 Metformin Hcl Xr 500 Mg Tab.Sr.24h PO 500 mg DAILY MARKELL Administration Miscellaneous Information 1 each 05/04/25 00:01 05/06/25 09:05 Nonformulary Drug (Lifitegrast [Xiidra] 5 % Dropperette)Can Patient Use From Home? XX 06/03/25 00:00 Not Given CLARIFY [facility] Multivitamins/Minerals 1 tablet 05/05/25 09:00 05/06/25 09:11 Opti-Gen Tab PO 1 tablet QAM MARKELL Administration Naloxone HCl 0.1 mg 05/04/25 15:34 Naloxone Hcl 0.4 Mg/Ml Vial IV PUSH Q2M PRN Opiate Reversal Non-Formulary Medication 1 drop 05/04/25 15:45 Lifitegrast [Xiidra] EACH EYE 06/03/25 15:44 Q12H MARKELL Ondansetron HCl 4 mg 05/04/25 15:34 Ondansetron Inj 4 Mg/2 Ml Vial IV PUSH Q4H PRN Nausea And Vomiting Polyethylene Glycol 17 gm 05/05/25 09:00 05/06/25 09:11 Polyethylene Glycol 3350 17 Gm Powd.Pack PO Not Given QAM MARKELL Senna/Docusate Sodium 2 tab 05/04/25 17:00 05/06/25 09:11 Senna/Docusate Sodium Tablet PO 2 tab BID MARKELL Administration Radiology Results: ITS Impressions Knee X-Ray 05/04/25 15:59 IMPRESSION: 1. Left total knee arthroplasty, negative for postoperative purposes. Labs Labs: Laboratory Results - last 24 hr 05/06/25 06:07 WBC 17.5 H RBC 3.75 L Hgb 10.9 L Hct 34.3 L MCV 91.5 MCH 29.1 MCHC 31.8 L RDW 14.1 Plt Count 268 MPV 11.0 H Immature Gran % (Auto) 0.5 Neut % (Auto) 81.6 H Lymph % (Auto) 5.1 L [place] % (Auto) 12.5 H Eos % (Auto) 0.1 Baso % (Auto) 0.2 Lymph # (Auto) 0.89 L [place] # (Auto) 2.2 H Eos # (Auto) 0.0 Baso # (Auto) 0.0 Abs Immat Gran (auto) 0.08 H Absolute Neuts (auto) 14.3 H Absolute Nucleated RBC 0.000 Nucleated RBC % 0.0 Sodium 131 L Potassium 3.8 Chloride 97 L Carbon Dioxide 28 Anion Gap 6 BUN 15 Creatinine 0.58 L Estim Creat Clear Calc 46 Estimated GFR > 60 Glucose 146 H Hemoglobin A1c 6.2 H Calcium 8.4 Magnesium 1.7 Total Bilirubin 0.4 AST 33 ALT 17 Alkaline Phosphatase 90 Total Protein 6.4 Albumin 3.6
[2025-05-06 14:00] VITALS: BP 117/50; PULSE 63; RESP 16; TEMP 36.6; O2SAT 96
[2025-05-06] MEDS: ATORVASTATIN 40 MG TABLET PO (17:00)
[2025-05-06] MEDS: diphenhydrAMINE HCl CAP 25 MG CAPSULE PO (20:15)
[2025-05-06] MEDS: AMITRIPTYLINE HCL 25 MG TABLET 50 MG PO (20:15)
[2025-05-06 21:47] VITALS: BP 138/43; PULSE 89; RESP 20; TEMP 36.6; O2SAT 97
[2025-05-07 04:45] VITALS: BP 156/64; PULSE 79; RESP 18; TEMP 36.9; O2SAT 97
[2025-05-07] MEDS: HYDROcodone/acetaminophen (*CRX) 7.5-325 MG TABLET 1 TAB PO ×2 (06:04→10:24)
[2025-05-07] MEDS: LEVOTHYROXINE SODIUM 100 MCG TABLET PO (06:05)
[2025-05-07] MEDS: SENNA/DOCUSATE SODIUM TABLET 2 TAB PO (08:54)
[2025-05-07] MEDS: FAMOTIDINE 20 MG TABLET PO (08:54)
[2025-05-07] MEDS: ASPIRIN 81 MG ENTERIC TABLET PO (08:54)
[2025-05-07] MEDS: metFORMIN HCL XR 500 MG TAB.SR.24H PO (08:54)
[2025-05-07] MEDS: OPTI-GEN TAB 1 TABLET PO (08:55)
[2025-05-07] MEDS: LOSARTAN POTASSIUM 25 MG TABLET PO (08:55)
--- NOTE | 2025-05-07 10:08 | P.DS_ITS ---
DS: Admitting Diagnosis Discharge Date 05/07/25 Admitting Diagnosis Left knee osteoarthritis DS: Discharge Diagnosis Discharge Diagnosis (1) Arthritis of left knee: Code(s): M17.12 - Unilateral primary osteoarthritis, left knee Status: Acute Assessment and Plan: Discharge to home, follow up in 2 weeks, keep dressing on and dry, ECASA 81mg bid for 30 days. Script written and given to patient preop in clinic for [place] Plan Discharge to home, follow up in 2 weeks, keep dressing on and dry, ECASA 81mg bid for 30 days. Script written and given to patient preop in clinic for [place] DS: Summary Hospital Course Reason for hospitalization: s/p Left TKA Hospital Course: Pain management daily with IV pain medications along with physical therapy consultation Time spent discussing smoking cessation with patient: 3 to 10 minutes Status at Discharge Functional status at discharge: uses cane/walker Overall status at discharge: patient is progressing back to baseline Time Spent with Patient Time attestation: Total time spent providing and/or coordinating discharge services: Time spent: Less than 30 minutes Exam Narrative: Left Knee bandaged and dry Const: General: cooperative Orientation/consciousness: oriented to person, oriented to place and oriented to time Discharge Plan Discharge Attending physician on discharge: Carlyle Mesa Consulting providers: Beata Mccollum Discharging Clinician: Carlyle Mesa Anticipated Discharge Date/Time: 05/07/25 10:03 Patient Disposition: Home with Home Health Service Activity: may shower and no driving Diet: regular Wound Care Instructions: keep dressing dry Discharge Instructions: Care Coordination: Patient to have [facility] services at discharge. They can be reached at [phone] if you have any questions; they will contact you to schedule their visits. RN Please fax discharge instructions to [phone]. Patient Instructions: Antibiotic Form Patient Language: Cypriot Stand Alone Forms: General Discharge Information Follow-up/Referrals: Carlyle Mesa MD [Physician, Orthopedics] Discharge Medications: New aspirin 81 mg Tablet,Delayed Release (Dr/Ec) 81 mg PO Q12HR Qty: 60 0RF Continued amitriptyline 50 mg tablet 50 mg PO HS atorvastatin 40 mg tablet 40 mg PO QPM levothyroxine 100 mcg tablet 100 mcg PO .day Xiidra 5 % dropperette 1 drp EACH EYE Q12H metformin 500 mg tablet extended release 24 hr 500 mg PO DAILY omeprazole 40 mg capsule,delayed release(DR/EC) 40 mg PO DAILY losartan 25 mg tablet 25 mg PO DAILY triamterene-hydrochlorothiazid 75-50 mg tablet 0.5 tablet PO DAILY docusate sodium [Colace] 100 mg capsule 100 mg PO DAILY diphenhydramine HCl [Sleep Tablet (diphenhydramine)] 25 mg tablet 25 mg PO HS melatonin 10 mg capsule 10 mg PO .PM PRN (Reason: sleep) Eye Health AREDS-2 250-90-40-1 mg capsule 1 tablet PO ONCE potassium 99 mg tablet 99 mg PO DAILY Neuriva Plus Brain Performance 1.7 mg-400 mcg- 2.4 mcg capsule 1 cap PO DAILY Date of admission: 05/05/25 13:46 Primary Care Provider: Anisha,Lori Hsieh PA-C Admitting Provider: Carlyle Mesa Attending physician on admission: Carlyle Mesa Condition: Stable Quality VTE Prophylaxis VTE prophylaxis: pharmacologic ordered
--- NOTE | 2025-05-07 10:20 | PM.IMPN ---
Progress Note: A&P Assessment and Plan (1) Arthritis of left knee: Code(s): M17.12 - Unilateral primary osteoarthritis, left knee Status: Acute Plan Right knee osteoarthritis s/p replacement continue Pain control and DVT prophylaxis per surgical team monitor HTN BP wnl continue home Losartan Hypothyroidism continue home Levothyroxine HLD continue statin DVT prophylaxis per surgical team Patient is stable for discharge medical team Subjective Date/time seen: 05/07/25 10:20 Interval history: Comfortable at bedside Review of Systems Review of Systems: All other systems were reviewed and negative except as noted in the HPI above Exam Narrative: General: alert and comfortable Eyes: EOMI, PERRLA ENNT External ears normal, Neck is supple, no masses, Respiratory systems: Clear to auscultation Cardiovascular S1, S2, normal rhythm, no murmur, rub, or gallop; no thrill or palpable murmurs on palpation. Gastrointestinal: soft, non-tender, and non-distended abdomen with no masses; BS present Skin: no rash, lesions, ulcerations, subcutaneous nodules or induration Musculoskeletal: Right knee wound dressing clean and dry Neurologic: Alert and oriented x3, non focal Mental Status Exam: normal affect Objective Data Vital Signs Vital Signs: Vital Signs - 24 hr 05/06/25 14:00 05/06/25 20:00 05/06/25 21:47 Temperature 97.9 F 97.8 F Pulse Rate 63 89 Respiratory Rate 16 20 Blood Pressure 117/50 L 138/43 L Pulse Oximetry 96 97 Oxygen Delivery Room Air 05/07/25 04:45 05/07/25 08:00 05/07/25 08:07 Temperature 98.4 F Pulse Rate 79 Respiratory Rate 18 Blood Pressure 156/64 H Pulse Oximetry 97 Oxygen Delivery Room Air Room Air Intake/Output Intake/Output: Intake & Output 05/04/25 05/05/25 05/06/25 05/07/25 23:59 23:59 23:59 23:59 Intake Total 350 1210 490 200 Balance 350 1210 490 200 Meds/Results Medications: Active Medications Generic Name Dose Route Start Last Admin Trade Name Freq PRN Reason Stop Dose Admin Hydrocodone Bitart/Acetaminophen 1 tab 05/04/25 15:34 05/07/25 06:04 Hydrocodone/Acetaminophen (*Crx) 7.5-325 Mg Tablet PO 1 tab Q4H PRN Administration Pain Rated 7-10 Amitriptyline HCl 50 mg 05/05/25 21:00 05/06/25 20:15 Amitriptyline Hcl 25 Mg Tablet PO 50 mg HS MARKELL Administration Aspirin 81 mg 05/04/25 21:00 05/07/25 08:54 Aspirin 81 Mg Enteric Tablet PO 81 mg Q12HR MARKELL Administration Atorvastatin Calcium 40 mg 05/04/25 18:00 05/06/25 17:00 Atorvastatin 40 Mg Tablet PO 40 mg QPM MARKELL Administration Diphenhydramine HCl 25 mg 05/04/25 15:34 Diphenhydramine Hcl Inj 50 Mg/Ml Vial IV PUSH Q6H PRN Itching Diphenhydramine HCl 25 mg 05/04/25 21:00 05/06/25 20:15 Diphenhydramine Hcl Cap 25 Mg Capsule PO 25 mg HS MRAKELL Administration Famotidine 20 mg 05/04/25 21:00 05/07/25 08:54 Famotidine 20 Mg Tablet PO 20 mg Q12HR MARKELL Administration Hydromorphone HCl 1 mg 05/04/25 15:34 05/06/25 04:00 Hydromorphone Hcl Inj (*Crx) 1 Mg/Ml Syr IV PUSH 1 mg Q2H PRN Administration Breakthrough Pain Rated 7-10 or NPO Hydromorphone HCl 0.5 mg 05/04/25 15:34 05/05/25 19:49 Hydromorphone Hcl Inj (*Crx) 1 Mg/Ml Syr IV PUSH 0.5 mg Q2H PRN Administration Breakthrough Pain Rated 4-6 or NPO Ibuprofen 800 mg in 200 mls @ 400 mls/hr 05/04/25 15:34 Caldolor 800 Mg/200 Ml IVPB Q6H PRN IF NPO Ibuprofen 400 mg 05/04/25 15:34 Ibuprofen 400 Mg Tablet PO Q6H PRN Pain Rated 1-3 Ibuprofen 600 mg 05/04/25 15:34 Ibuprofen 600 Mg Tablet PO Q6H PRN Pain Rated 4-6 Levothyroxine Sodium 100 mcg 05/05/25 06:30 05/07/25 06:05 Levothyroxine Sodium 100 Mcg Tablet PO 100 mcg DAILY@0630 MARKELL Administration Losartan Potassium 25 mg 05/05/25 09:00 05/07/25 08:55 Losartan Potassium 25 Mg Tablet PO 25 mg DAILY MARKELL Administration Melatonin 10 mg 10/02/25 15:41 Melatonin 5 Mg Tablet PO HS PRN Sleep Metformin HCl 500 mg 05/05/25 09:00 05/07/25 08:54 Metformin Hcl Xr 500 Mg Tab.Sr.24h PO 500 mg DAILY MARKELL Administration Miscellaneous Information 1 each 05/04/25 00:01 05/07/25 08:53 Nonformulary Drug (Lifitegrast [Xiidra] 5 % Dropperette)Can Patient Use From Home? XX 06/03/25 00:00 Not Given [facility] Multivitamins/Minerals 1 tablet 05/05/25 09:00 05/07/25 08:55 Opti-Gen Tab PO 1 tablet QAM [facility] Administration Naloxone HCl 0.1 mg 05/04/25 15:34 Naloxone Hcl 0.4 Mg/Ml Vial IV PUSH Q2M PRN Opiate Reversal Non-Formulary Medication 1 drop 05/04/25 15:45 Lifitegrast [Xiidra] EACH EYE 06/03/25 15:44 Q12H MARKELL Ondansetron HCl 4 mg 05/04/25 15:34 Ondansetron Inj 4 Mg/2 Ml Vial IV PUSH Q4H PRN Nausea And Vomiting Polyethylene Glycol 17 gm 05/05/25 09:00 05/07/25 08:55 Polyethylene Glycol 3350 17 Gm Powd.Pack PO 17 gm QAM MARKELL Administration Senna/Docusate Sodium 2 tab 05/04/25 17:00 05/07/25 08:54 Senna/Docusate Sodium Tablet PO 2 tab BID MARKELL Administration Radiology Results: ITS Impressions Knee X-Ray 05/04/25 15:59 IMPRESSION: 1. Left total knee arthroplasty, negative for postoperative purposes. Quality VTE Prophylaxis VTE prophylaxis: pharmacologic ordered
== END 2025-05-07 12:40 | disposition home health service (06) ==
LOC: ANHSURGERY 13:57 → ANH3MEDSUR 13:57
PROVIDERS: Internal Medicine; Admitting Provider Orthopaedic Surgery; Visit Provider Orthopaedic Surgery
PROC: (CPT 27447; principal; 2025-05-04 12:00)
DX: M17.12 Unilateral primary osteoarthritis, left knee (principal); G89.18 Other acute postprocedural pain; I10 Essential (primary) hypertension; E03.9 Hypothyroidism, unspecified; E78.5 Hyperlipidemia, unspecified; Z87.891 Personal history of nicotine dependence; Z79.84 Long term (current) use of oral hypoglycemic drugs
CPT/HCPCS: 27447; 64447; 36415; 73560; 80048; 80053; 82948; 83036; 83735; 85025; 97110; 97116; 97161; 97166; 97530; 97535; J0690; A9270; C1713; C1776; G0378; J0166; J1100; J1171; J1885; J2003; J2270; J2405; J2704; J2795; J3010; J3290; J3373; J7030; J7120